=== PATIENT | female | born 1930 | race Caucasian/White ===

== ENCOUNTER 2016-10-14 10:26 | Emergency (ER) | payer MEDICARE, OTHER ==
[~2016-10-14] VITALS: Ht 152.4 cm; Wt 61.4 kg
[~2016-10-14 10:26] MED LIST: ASPI81TA3 PO; CALC600T12 PO; CHOL100045 PO; FUR20 PO; HYDR-3938 PO; ISOS30TA4 PO; Krill Oil PO; LAN125 PO; METO-272 PO; Magnesium PO; PRA20 PO; Potassium Gluconate PO; VITA400C64 PO
[2016-10-14 10:29] VITALS: BP 195/122; PULSE 79; RESP 18; O2SAT 97
--- NOTE | 2016-10-14 10:45 | ED.REPORT ---
HPI-Back Pain 40 and Over Date of Service Oct 14, 2016 ED Provider: Francois Sanders MD History of Present Illness: sent from urgent care for eveal Pt is a 86 year old female with a history of CHF, A-fib, HTN, who presents to the ED complaining of right lower back pain onset 1 week. She denies chest pain , SOB, numbness, urinary symptoms, bowel symptoms, and paresthesia. The pt rates her pain as an 8/10. Pt reports that she helped her move lawn chairs 1 week ago, which she believes may have caused her pain. The pt presented to Urgent Care with her symptoms and she was referred to the ED for further evaluation with concerns regarding the aorta. Nursing Notes Stated Complaint: BACK PAIN/SENT FROM URGENT CARE Chief Complaint: Back Pain or Injury Nursing Notes Reviewed: Yes ([employer] not reconciled) Allergies: Coded Allergies: Influenza Virus Vaccines (Verified Allergy, Unknown, 05/20/15) alendronate sodium (Verified Allergy, Unknown, 05/20/15) amlodipine besylate (Verified Allergy, Unknown, 05/20/15) benazepril HCl (Verified Allergy, Unknown, 05/20/15) Scheduled ([Magnesium ]) 400 MG PO DAILY ([Krill Oil ]) 750 PO DAILY ([Potassium Gluconate]) 10 MEQ PO BID Aspirin Chew (Aspirin Chew) 81 Mg Chew 81 MG PO DAILY Calcium Carbonate (Calcium) 600 Mg Tablet 600 MG PO DAILY Cholecalciferol (Vitamin D3) (Vitamin D) 1,000 Unit Capsule 1,000 UNIT PO DAILY Digoxin (Lanoxin) 0.125 Mg Tablet 0.125 MG PO DAILY@12 Hydralazine (Hydralazine) 10 Mg Tablet 10 MG PO QID Isosorbide MN ER (Isosorbide MN ER) 30 Mg Tab.er.24h 30 MG PO BID Metoprolol Succinate ER (Metoprolol Succinate ER) 50 Mg Tab.er.24h 50 MG PO BID Pravastatin (Pravachol) 20 Mg Tablet 10 MG PO HS Vitamin E Mixed (Vitamin E) 400 Unit Capsule 400 UNIT PO DAILY Scheduled PRN Furosemide (Furosemide) 20 Mg Tab 20 MG PO DAILY PRN PRN For Shortness of Breath General Time Seen by MD: 10:42 Chief Complaint Back pain Hx Obtained From: Patient Arrived By: Walk-in Sudden in Onset?: No Onset Occurred: 1 week ago Symptom Duration: Since onset Location: : Generalized Quality: Painful Radiation: : Does not radiate Severity: Current: Pain level 8 out of 10 Severity: Maximum: Moderate Recent Healthcare: Recent doctor visit Similar Sx Previous: No Past Medical History Past Medical History Notes: Oncologist: Dr. Hernandez Previous oncology note 05/06/15: ASSESSMENT AND PLAN: 1. Microcytic anemia associated with iron deficiency: No evidence of active anemia at this time. Red cells were normocytic. Recheck annually. Check CBC, differential, platelets, CMP, and iron studies in one year. 2. Meningioma: Slightly increased in size since prior evaluation. Given her advanced age and relative asymptomatic state, she does not wish to pursue this further unless she were to become clinically symptomatic. 3. Left thyroid mass: The patient is concerned about increasing mass in her thyroid. Obtain ultrasound and compare to exam from 2-3 years ago. Ab Hernandez MD 05/06/15 1628 <Electronically signed by Ab Hernandez MD> 05/07/15 1040 Past Medical History microcytic anemia meningioma left thyroid mass arthritis skin cancer Anxiety Hypomagnesemia Reports: GERD, Hypertension Reports: Atrial fibrillation Past Surgical History hiatal hernia repair in 2011 brain surgery for meningioma Reports: Appendectomy, Cholecystectomy, Hysterectomy Family History Mother had hypertension and a meningioma Brother had brain cancer and within 3 months of diagnosis Paternal aunt with brain cancer Daughter with tumors like a meningioma but on her arm Father at age 62 of hemorrhaging after he swallowed a chicken bone Smoking History Never Smoker Social History Alcohol Use: Denies alcohol use Drug Use: Denies drug use Other Social History: Good social support, , Local resident Ambulatory Status Independent Review of Systems Denies paresthesia Respiratory: Denies: Shortness of breath Cardiovascular: Denies: Chest pain GI: Denies: Constipation, Diarrhea Female: Denies: Dysuria, Hematuria, Incontinence, Urinary frequency, Urinary urgency, Urination decreased, Urination increased Musculoskeletal: Reports: Back pain Neurologic: Denies: Numbness Complete sys rev & neg: except as marked. Physical Exam Initial Vital Signs Vital Signs (First) Date Time Temp Pulse Resp B/P Pulse Ox O2 Delivery O2 Flow Rate FiO2 10/14/16 10:29 36.3 79 18 195/122 97 Room Air Initial VS: Reviewed, Vital signs abnormal (severe HTN) Head / Eyes: Atraumatic, Normocephalic Neck: Supple, Full range of motion Extremities: Vascular intact, Neuro intact Skin: Warm, Dry, No cyanosis Psychiatric: Mood/affect normal, Behavior normal General/Constitutional: Awake, Alert Respiratory / Chest: Atraumatic, Breath sounds NL, Breath sounds = bilat Cardiovascular: Regular rhythm Heart Sounds / Murmur: Positive: Murmur present... (I/, mild) Rate controlled A-fib. No edema. Abdomen: Atraumatic, Soft, Non-tender, No pulsatile mass Back: Atraumatic, Full range of motion Neurologic: Oriented X3, Speech NL Interpretation & Diagnostics CT ANGIO CHEST ABDOMEN AND PELVIS IMPRESSION: 1. No aortic aneurysm or dissection. 2. Small hiatal hernia. 3. Diverticulosis. No acute diverticulitis. 4. Calcified left thyroid mass. Followup or ultrasound suggested. 5. Simple appearing right renal cyst. 6. Compression fractures, moderate at T12 and mild at L4, probably chronic. There is osteopenia. 7. Multiple small nodules bilaterally. Some nodules are calcified consistent with remote granulomatous infections. Please followup recommendation. Fleischner Society criteria for SOLID lung nodule followup. Nodule size (mm)Low-risk patientHigh-risk [id number] follow-up neededFollow-up at 12 mo; if no change, no further follow-up>[id number] CT at 12 mo; if no change, no further follow-up needed.Initial follow-up CT at 6-12 mo, then 18-24 mo if no change. >6-8Initial follow-up CT at 6-12 mo, then 18-24 mo if no change. Initial follow-up CT at 3-6 mo, then 9-12 mo and 24 mo if no change. > 8Follow-up CT at 3, 9, 24 mo. Or PET and/or biopsy.Same as for low-risk pts. Dictated by: Jennifer Aleman M.D. on 10/14/2016 at 12:37 Lab Results Interpretation Result Diagram: 10/14/16 1106 10/14/16 1106 Test 10/14/16 10:48 10/14/16 11:06 Urine Color Straw (YELLOW) Urine Appearance Hazy (CLEAR,HAZY) Urine pH 6.0 (5.0-8.0) Urine Specific Welches 1.005 (1.003-1.035) Urine Protein Negativemg/dL (NEG,TRACE) Urine Glucose (UA) Negativemg/dL (NEGATIVE) Urine Ketones Negativemg/dL (NEGATIVE) Urine Occult Blood Negative (NEGATIVE) Urine Nitrite Negative (NEGATIVE) Urine Bilirubin Negative (NEGATIVE) Urine Urobilinogen Normalmg/dL (NORMAL) Urine Leukocyte Esterase Negative (NEGATIVE) Urine RBC 0-2/hpf (0-2) Urine WBC 0-5/hpf (0-5) Urine Epithelial Cells Occasional/hpf (NONE-MOD) Urine Crystals None seen (NONE SEEN) Urine Bacteria Few/hpf (NONE-FEW) Urine Hyaline Casts None/lpf (NONE) Urine Granular Casts None seen (NONE SEEN) Urine Waxy Casts None seen (NONE SEEN) Urine Red Blood Cell Casts None seen (NONE SEEN) Urine White Blood Cell Casts None seen (NONE SEEN) Urine Mucus None seen (None Seen) Urine Trichomonas None seen (NONE SEEN) Urine Yeast None (NONE SEEN) Urinalysis Comment None Urine Culture Reflexed Not indicated Hold Urine Received (Received) White Blood Count 3.5th/mm3 (3.8-10.1) Red Blood Count 4.87mil/mm3 (3.90-5.20) Hemoglobin 14.2g/dL (12.0-15.6) Hematocrit 42.4% (35.0-46.0) Mean Corpuscular Volume 87.1fL (81-100) Mean Corpuscular Hemoglobin 29.2pg (27.0-35.0) Mean Corpuscular Hemoglobin Concent 33.5% (32.0-37.0) Red Cell Distribution Width 14.6% (12.3-15.4) Platelet Count 78bil/L (150-400) Neutrophils (%) (Auto) 52.2% (40-74) Lymphocytes (%) (Auto) 33.9% (14-46) Monocytes (%) (Auto) 8.4% (4-12) Eosinophils (%) (Auto) 4.3% (0-5) Basophils (%) (Auto) 0.6% (0-3) Sodium Level 143mEq/L (134-144) Potassium Level 4.3mEq/L (3.5-5.2) Chloride Level 105mEq/L (97-108) Carbon Dioxide Level 24mmol/L (18-29) Blood Urea Nitrogen 17mg/dL (8-27) Creatinine 0.77mg/dL (0.57-1.00) Estimat Glomerular Filtration Rate 101mL/min (>59) Glucose Level 106mg/dL (60-99) Calcium Level 9.3mg/dL (8.5-10.1) Total Bilirubin 0.5mg/dL (0.0-1.2) Aspartate Amino Transf (AST/SGOT) 21U/L (0-50) Alanine Aminotransferase (ALT/SGPT) 13U/L (0-32) Alkaline Phosphatase 69U/L (25-165) Troponin T 0.010ug/L (0.0-0.011) Total Protein 6.9g/dL (6.4-8.4) Albumin 4.1g/dL (3.4-5.0) ECG Interpretation ECG Interpretation: Atrial fibrillation with a rate of 88 Anterior q waves No change compared to 01/2016 Time: 10:52 Interpreted by: ED physician Re-Eval/Medical Decision Med Decision/Clinical Course This is an 86-year-old female with chronic severe high blood pressure is referred from urgent care for concern for AAA or dissection she developed some new back pain following some lifting and yard work she did. However the pain did not start immediately at the time of exertion, but has been worsening. This a mechanical component, but no new neurologic symptoms. Symptoms do radiate into the right flank slightly. She denies grover chest discomfort, shortness breath or diaphoresis. She is severely hypertensive, but claims this is chronic and unchanged-she is on multiple blood pressure medications. The patient is not taking any medicines include Tylenol ibuprofen she did no safe. On exam she actually appears well, no palpable abdominal mass is evident. She does not appear toxic or ill, has a normal neurologic exam. EKG blood work is normal and CT chest abdomen pelvis reveals no evidence for dissection or aortic aneurysm, additionally his spine appears without acute injury, patient received Tylenol and dose ibuprofen given normal renal function and is markedly improved. She is being discharged on same. Routine precautions reviewed, she will follow up with her PCP for continued workup blood pressure management. Routine return precautions reviewed. Patient is discharged in improved condition. Source of Hx: Old records Re-Evaluation/Progress : Time of Eval: 13:05 Re-Evaluation/Progress Note: Pt rechecked. Informed pt of results and plan for discharge. Pt understands and agrees with plan for discharge. F/U instructions and RTER warnings given. All questions addressed. Differential Diagnosis: Positive: Musculoskeletal pain, Negative: Abdominal aortic aneurysm, , Aortic dissection, Appendicitis, Bowel obstruction, Cauda equina syndrome, Ectopic , Epidural abscess, Neoplasm, Osteomyelitis, Pancreatitis, Pyelonephritis, Sciatica, Thoracic aortic dissect Counseled Regarding: Diagnosis, Lab results, Need for follow-up, When/why to return to ED Discharge & Departure Impression: Primary Impression: Back pain Back pain location: back pain in unspecified location Chronicity: acute Back pain laterality: right Qualified Code: M54.9 - Dorsalgia, unspecified Additional Impressions: Flank pain Hypertension Hypertension type: unspecified secondary hypertension Qualified Code: I15.9 - Secondary hypertension, unspecified Disposition: Home Discharge Condition All VS Reviewed: Yes Condition: Stable Additional Instructions: 1. You were sent from Urgent Care for imaging to make sure there was not a dangerous cause of your back/flank pain - and your CT scans were normal. 2. Take tylenol 1000mg three times a day for pain if needed. 3. It is safe for you to take ibuprofen 400mg up to three times a day for the next week or tow as well if needed. 4. Continue your blood pressure medication and continue to work on your blood pressure management with your primary provider. 5. Activities as tolerated (take it easy) 6. Return if new or worsening symptoms. Referrals: Pancho Loera MD (PCP) Scribe Attestation Portions of this note were transcribed by Nadege Hair. I, Dr. Sanders personally performed the history, physical exam and medical decision-making; I reviewed and confirmed the accuracy of the information in the transcribed note. Signed by: Keo Pimentel, 10/14/16. copies to: Pancho Loera MD, Matthew F MD Oct 14, 2016 10:44 Nadege Motley Oct 14, 2016 10:47
[2016-10-14 11:16] LABS: BASOPHILS % (AUTO) 0.6 % (0-3); EOSINOPHILS % (AUTO) 4.3 % (0-5); MONOCYTES % (AUTO) 8.4 % (4-12); Mean Corpuscular Hemoglobin 29.2 pg (27.0-35.0); Mean Corpuscular Volume 87.1 fL (81-100); NEUTROPHILS % (AUTO) 52.2 % (40-74); Platelet Count 78 bil/L (150-400)
[2016-10-14] MEDS ORDERED: fentaNYL-PF 50 mCg/mL 2 mL Inj IVPUSH ONE (11:25)
[2016-10-14 12:05] LABS: TROPONIN T 0.01 ug/L (0.0-0.011)
[2016-10-14 12:30] VITALS: BP 182/94; PULSE 62; PULSE 91; RESP 18; O2SAT 95
--- NOTE | 2016-10-14 12:56 | DRSVH ---
PROCEDURE: CT ANGIO CHEST ABDOMEN AND PELVIS INDICATIONS: back/R flank pain, severe HTN TECHNIQUE: Precontrast 5 mm thick sections acquired from the lung apices to the iliac crests. After the adminis tration of intravenous contrast, 3 mm thick sections again acquired from the lung apices to the iliac crests. 3-dimensional maximum intensity projection (MIP) oblique sagittal and coronal reformats wer e then acquired, and/or 3-dimensional volume rendering reformats. For radiation dose reduction, the following was used: automated exposure control. COMPARISON: [facility], US, US THYROID, 05/15/2015, 7:42. [facility], CT, CT ABD PELVIS W CON, 05/16/2015, 5:29. FINDINGS: Image quality: Excellent. AORTA: The aorta is normal in caliber. No evidence for aortic dissection. There is moderate atherosc lerotic calcification. CHEST: Lungs and pleura: Multiple small lung nodules are present bilaterally; some are calcified. No acute airspace opacities. No pleural effusions or pneumothorax. Central and peripheral airways are patent and normal in caliber. Mediastinum: Heart size is normal. No pericardial effusion. No mediastinal or hilar adenopathy by size criteria. Central pulmonary arteries are normal in size. Esophagus is normal in caliber. There is a small hiatal hernia. Bones and chest wall: No axillary adenopathy by size criteria. Left thyroid lobe is enlarged there i s a large calcified mass. No suspicious bony lesions. No vertebral body compression fractures. ABDOMEN: Vasculature: Celiac trunk and mesenteric arteries are patent. Dense calcification at the renal yonatan ry ostia with modest stenosis. Renal arteries are, however, patent. Solid organs: Liver and spleen are normal in size. Gallbladder is surgically absent. Biliary syste m is non dilated. Pancreas enhances normally. No adrenal nodules. Both kidneys are normal in size and enhancement, without hydronephrosis. There is a 4 cm simple appearing cyst in the right kidney. Peritoneum and bowel: No free fluid or air. Bowel loops are normal in caliber and wall thickness. There are scattered colonic diverticula. No acute diverticulitis. Nodes and vessels: No retroperitoneal or mesenteric adenopathy by size criteria. Inferior vena cava is normal in morphology. Miscellaneous: Fat-containing ventral hernia. PELVIS: Genitourinary: Bladder wall thickness is normal. Miscellaneous: No inguinal hernias or adenopathy. No ventral hernias. Bones: There is a bone island in the right iliac bone. There is moderate vertebral body compression f racture at T12 and mild compression fracture at L4, probably chronic. There is osteopenia. IMPRESSION: 1. No aortic aneurysm or dissection. 2. Small hiatal hernia. 3. Diverticulosis. No acute diverticulitis. 4. Calcified left thyroid mass. Followup or ultrasound suggested. 5. Simple appearing right renal cyst. 6. Compression fractures, moderate at T12 and mild at L4, probably chronic. There is osteopenia. 7. Multiple small nodules bilaterally. Some nodules are calcified consistent with remote granulomatou s infections. Please followup recommendation. Fleischner Society criteria for SOLID lung nodule followup. Nodule size (mm)Low-risk patientHigh-risk [id number] follow-up neededFollow-up at 12 mo; if no cabrera e, no further follow-up>[id number] CT at 12 mo; if no change, no further follow-up needed.Initial f ollow-up CT at 6-12 mo, then 18-24 mo if no change. >6-8Initial follow-up CT at 6-12 mo, then 18-24 mo if no change. Initial follow-up CT at 3-6 mo, then 9-12 mo and 24 mo if no change. >8Follow-up CT at 3, 9, 24 mo. Or PET and/or biopsy.Same as for low-risk pts. Dictated by: Jennifer Aleman M.D. on 10/14/2016 at 12:37 Approved by: Jennifer Aleman M.D. on 10/14/2016 at 12:54
[2016-10-14 13:35] LABS: APPEARANCE,URINE HAZY (CLEAR,HAZY); COLOR,URINE STRAW (YELLOW)
[2016-10-14 13:36] LABS: OCCULT BLOOD,URINE NEGATIVE (NEGATIVE); UROBILINOGEN,URINE NORMAL (NORMAL)
[2016-10-14 14:10] VITALS: BP 158/82; PULSE 70; RESP 16; O2SAT 94
== END 2016-10-14 14:11 | disposition home or self-care (01) ==
LOC: SED 10:26
DX: M54.9 Dorsalgia, unspecified (principal); R10.84 Generalized abdominal pain; I15.9 Secondary hypertension, unspecified; I48.91 Unspecified atrial fibrillation; K21.9 Gastro-esophageal reflux disease without esophagitis; F41.9 Anxiety disorder, unspecified; Z98.890 Other specified postprocedural states; Z79.82 Long term (current) use of aspirin; Z88.7 Allergy status to serum and vaccine; Z88.8 Allergy status to other drugs, medicaments and biological substances
CPT/HCPCS: 36415; 71275; 74174; 80053; 81000; 84484; 85025; 93005; 96374; 99285; J3010; Q9967

== ENCOUNTER 2016-10-17 04:49 | Emergency (ER) | payer MEDICARE, OTHER ==
[~2016-10-17] VITALS: Ht 152.4 cm; Wt 63.6 kg
[2016-10-17 04:51] VITALS: BP 207/105; PULSE 80; RESP 18; O2SAT 97
--- NOTE | 2016-10-17 05:03 | ED.REPORT ---
HPI-Back Pain 40 and Over Date of Service Oct 17, 2016 ED Provider: Dr. Ortega Pt is an 86 year old female with a history of CHF, A-fib, and HTN presenting to the ED complaining of back pain onset 2 weeks ago while lifting lawn chairs. She was seen in the ED yesterday and had a CT showing old compression fractures but no acute process. She denies any bladder or stool incontinence, numbness, fever, nausea vomiting or diarrhea. She has been taking Tylenol and Ibuprofen for pain without relief. Nursing Notes Stated Complaint: BACK PAIN Chief Complaint: Back Pain or Injury Nursing Notes Reviewed: Yes Allergies: Coded Allergies: Influenza Virus Vaccines (Verified Allergy, Unknown, 10/17/16) alendronate sodium (Verified Allergy, Unknown, 10/17/16) amlodipine besylate (Verified Allergy, Unknown, 10/17/16) benazepril HCl (Verified Allergy, Unknown, 10/17/16) Scheduled ([Magnesium ]) 400 MG PO DAILY ([Krill Oil ]) 750 PO DAILY ([Potassium Gluconate]) 10 MEQ PO BID Aspirin Chew (Aspirin Chew) 81 Mg Chew 81 MG PO DAILY Calcium Carbonate (Calcium) 600 Mg Tablet 600 MG PO DAILY Cholecalciferol (Vitamin D3) (Vitamin D) 1,000 Unit Capsule 1,000 UNIT PO DAILY Digoxin (Lanoxin) 0.125 Mg Tablet 0.125 MG PO DAILY@12 Hydralazine (Hydralazine) 10 Mg Tablet 10 MG PO QID Isosorbide MN ER (Isosorbide MN ER) 30 Mg Tab.er.24h 30 MG PO BID Metoprolol Succinate ER (Metoprolol Succinate ER) 50 Mg Tab.er.24h 50 MG PO BID Pravastatin (Pravachol) 20 Mg Tablet 10 MG PO HS Vitamin E Mixed (Vitamin E) 400 Unit Capsule 400 UNIT PO DAILY Scheduled PRN Furosemide (Furosemide) 20 Mg Tab 20 MG PO DAILY PRN PRN For Shortness of Breath General Time Seen by MD: 05:02 Chief Complaint Back pain Hx Obtained From: Patient Arrived By: Walk-in Sudden in Onset?: Yes Onset Occurred: More than a week ago... (2 weeks) Symptom Duration: Since onset Caused by: Lifting Quality: Painful Severity: Current: Severe Severity: Maximum: Severe Recent Healthcare: No recent hospitalization, Recent doctor visit Similar Sx Previous: Yes Past Medical History Past Medical History Notes: Oncologist: Dr. Hernandez Previous oncology note 05/06/15: ASSESSMENT AND PLAN: 1. Microcytic anemia associated with iron deficiency: No evidence of active anemia at this time. Red cells were normocytic. Recheck annually. Check CBC, differential, platelets, CMP, and iron studies in one year. 2. Meningioma: Slightly increased in size since prior evaluation. Given her advanced age and relative asymptomatic state, she does not wish to pursue this further unless she were to become clinically symptomatic. 3. Left thyroid mass: The patient is concerned about increasing mass in her thyroid. Obtain ultrasound and compare to exam from 2-3 years ago. Ab Hernandez MD 05/06/15 1628 <Electronically signed by Ab Hernandez MD> 05/07/15 1040 Past Medical History microcytic anemia meningioma left thyroid mass arthritis skin cancer Anxiety Hypomagnesemia Reports: GERD, Hypertension Reports: Atrial fibrillation Past Surgical History hiatal hernia repair in 2011 brain surgery for meningioma Reports: Appendectomy, Cholecystectomy, Hysterectomy Family History Mother had hypertension and a meningioma Brother had brain cancer and within 3 months of diagnosis Paternal aunt with brain cancer Daughter with tumors like a meningioma but on her arm Father at age 62 of hemorrhaging after he swallowed a chicken bone Smoking History Never Smoker Social History Alcohol Use: Denies alcohol use Drug Use: Denies drug use Other Social History: Good social support, , Local resident Ambulatory Status Independent Review of Systems Constitutional: Denies: Fever GI: Denies: Diarrhea, Nausea, Vomiting Female: Denies: Incontinence Musculoskeletal: Reports: Back pain Neurologic: Denies: Bladder dysfunction, Bowel dysfunction, Numbness Complete sys rev & neg: except as marked. Physical Exam Initial Vital Signs Vital Signs (First) Date Time Temp Pulse Resp B/P Pulse Ox O2 Delivery O2 Flow Rate FiO2 10/17/16 04:51 36.4 80 18 207/105 97 Room Air Initial VS: Reviewed Head / Eyes: Atraumatic, Normocephalic, PERRL ENT: Mucous membranes moist, Conjunctiva normal, No scleral icterus Extremities: Vascular intact, Neuro intact, No swelling, No tenderness Skin: Warm, Dry, No cyanosis Psychiatric: Mood/affect normal, Behavior normal, Normal thought content General/Constitutional: Awake, Alert Appears uncomfortable Respiratory / Chest: Breath sounds NL, Breath sounds = bilat, No respiratory distress, No rales, No rhonchi, No wheezing Cardiovascular: Heart rate NL, Regular rhythm, Heart sounds NL, No murmurs, Peripheral circulation NL Abdomen: Atraumatic, Soft, Non-tender Back: Atraumatic, No CVA tenderness Low back pain. No flank pain. Neurologic: Oriented X3, Speech NL, No motor deficits, No sensory deficits, CN II - XII intact, Reflexes equal bilat, Cerebellar NL, Memory NL Re-Eval/Medical Decision Med Decision/Clinical Course -year-old female presents with back pain unrelieved by Motrin and Tylenol. Onset was about two weeks ago after lifting some furniture. Then basically unrelenting and progressive, but without neurological malfunction. She has received a Vicodin and some Robaxin here tonight with minimal relief. Cannot characterize this yet is intractable and so additional round of therapy plan. Signed out at [address] Arenas, for further evaluation and management as clinical situation dictates. Re-Evaluation/Progress : Time of Eval: 06:00 Patient Status: Condition improved Re-Evaluation/Progress Note: Pt feeling slightly better. Discussed transfer of care to Dr. Arenas. Counseled Regarding: Diagnosis, Lab results, Need for follow-up, When/why to return to ED Discharge & Departure Shift Change Sign-Out Patient Care Transferred: Yes Discussed Complaint(s): Yes Laboratory Evaluation: Ordered, not yet done Impression: Primary Impression: Low back pain Disposition: Home Discharge Condition All VS Reviewed: Yes Condition: Improved Referrals: Pancho Loera MD (PCP) Care Transferred to: Care transferred to Dr. Arenas Care Transferred at: 06:00 Keo Attestation Portions of this note were transcribed by Altagracia Apple. I, Dr. Ortega personally performed the history, physical exam and medical decision-making; I reviewed and confirmed the accuracy of the information in the transcribed note. Signed by: Keo Degroot, 10/17/2016. copies to: Pancho Loera MD, Christopher W MD Oct 17, 2016 05:03 ALTAGRACIA APPLE Oct 17, 2016 05:10
[2016-10-17] MEDS ORDERED: HYDROcodone-APAP 5-325 mg Tablet PO ONE (05:10)
[2016-10-17] MEDS ORDERED: Magnesium Hydroxide 10 mL Oral Concentration PO ONE (05:25)
[2016-10-17 06:06] VITALS: BP 196/94; PULSE 63; RESP 16; O2SAT 96
[2016-10-17] MEDS ORDERED: oxyCODONE-Acetamin 5-325 mg Tablet PO ONE ×2 (07:00→08:35)
[2016-10-17 08:38] LABS: APPEARANCE,URINE HAZY (CLEAR,HAZY); COLOR,URINE YELLOW (YELLOW); OCCULT BLOOD,URINE NEGATIVE (NEGATIVE); UROBILINOGEN,URINE NORMAL (NORMAL)
[2016-10-17] MEDS ORDERED: POLY17PO6 PO (09:51)
[2016-10-17] MEDS ORDERED: METH500T PO (09:51)
[2016-10-17] MEDS ORDERED: OXYC1TAB24 PO (09:51)
[2016-10-17 09:52] VITALS: BP 145/80; PULSE 85; RESP 14; O2SAT 95
[2016-10-17 10:17] VITALS: BP 145/80; PULSE 85; RESP 14; O2SAT 95
--- NOTE | 2016-10-17 11:36 | DRSVH ---
PROCEDURE: X-RAY SACROILIAC JOINTS, THREE OR MORE VIEWS ([id number]) INDICATIONS: r si joint pain TECHNIQUE: 3 views of the sacroiliac joints were acquired. COMPARISON: None. FINDINGS: Bones: No bony erosions or ankylosis. There is moderate sacroiliac joint degeneration. A 9 mm round density in the right sacral ala is probably a bone island. suspicious bony lesions. No fractures. Soft tissues: Overlying bowel gas pattern is normal. A calcific density below the pubic symphysis is noted. 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 No bony erosion or an kylosis. Dictated by: Jennifer Aleman M.D. on 10/17/2016 at 11:33 Approved by: Jennifer Aleman M.D. on 10/17/2016 at 11:34
== END 2016-10-17 10:18 | disposition home or self-care (01) ==
LOC: SED 04:49
DX: M54.5 Low back pain (principal); I11.0 Hypertensive heart disease with heart failure; I50.9 Heart failure, unspecified; K21.9 Gastro-esophageal reflux disease without esophagitis; Z85.828 Personal history of other malignant neoplasm of skin; Z90.710 Acquired absence of both cervix and uterus; Z79.82 Long term (current) use of aspirin; Z88.8 Allergy status to other drugs, medicaments and biological substances

== ENCOUNTER 2016-10-28 14:50 | Emergency (ER) | payer MEDICARE, OTHER ==
[~2016-10-28] VITALS: Ht 152.4 cm; Wt 63.6 kg
[~2016-10-28 14:50] MED LIST changes: +METH500T PO; -METO-272 PO; +METO-369 PO; +OXYC1TAB24 PO; +POLY17PO6 PO
[2016-10-28 15:03] VITALS: BP 155/85; PULSE 67; RESP 19; O2SAT 97
--- NOTE | 2016-10-28 15:25 | ED.REPORT ---
HPI-Back Pain 40 and Over Date of Service Oct 28, 2016 ED Provider: Kodak Carter MD Pt is an 86 year old female with a hx of meningioma, afib, GERD, CHF and HTN presenting to the ED from complaining of right lower back pain for the last 2 weeks. The pain is exacerbated by movement and does not radiate. Denies any LE weakness, loss of sensation in her legs, fever, chills, vomiting, SOB or wheezing. She has not had any fecal or urinary incontinence and she has not had any difficulty voiding urine. She was working on her deck 3 weeks ago and helped her orange picker a heavy table at which time she started having back pain. Pt was seen by her PCP on 10/19 and was given a "shot but it didn't help." Pt takes 2 oxycodone pills every 6 hours without relief. She has also been using hot packs and ice packs. She is not on blood thinners. She has not been taking any ibuprofen or Tylenol. Nursing Notes Stated Complaint: BACK PAIN/SENT FROM URGENT CARE Chief Complaint: Back Pain or Injury Nursing Notes Reviewed: Yes Allergies: Coded Allergies: Influenza Virus Vaccines (Verified Allergy, Unknown, 10/17/16) alendronate sodium (Verified Allergy, Unknown, 10/17/16) amlodipine besylate (Verified Allergy, Unknown, 10/17/16) benazepril HCl (Verified Allergy, Unknown, 10/17/16) Scheduled ([Magnesium ]) 400 MG PO DAILY ([Krill Oil ]) 750 PO DAILY ([Potassium Gluconate]) 10 MEQ PO BID Aspirin Chew (Aspirin Chew) 81 Mg Chew 81 MG PO DAILY Calcium Carbonate (Calcium) 600 Mg Tablet 600 MG PO DAILY Cholecalciferol (Vitamin D3) (Vitamin D) 1,000 Unit Capsule 1,000 UNIT PO DAILY Digoxin (Lanoxin) 0.125 Mg Tablet 0.125 MG PO DAILY@12 Hydralazine (Hydralazine) 10 Mg Tablet 10 MG PO QID Isosorbide MN ER (Isosorbide MN ER) 30 Mg Tab.er.24h 30 MG PO BID Lidocaine (Lidoderm) 700 Mg Adh..patch 1 PATCH TP UD Methocarbamol (Robaxin) 500 Mg Tablet 1-2 TAB PO TID Metoprolol Succinate ER (Metoprolol Succinate ER) 50 Mg Tab.er.24h 50 MG PO BID Polyethylene Glycol 3350 (Miralax) 17 Gm Powd.pack 17 GM PO DAILY use daily while taking percocet to prevent constipation Pravastatin (Pravachol) 20 Mg Tablet 10 MG PO HS Vitamin E Mixed (Vitamin E) 400 Unit Capsule 400 UNIT PO DAILY Scheduled PRN Furosemide (Furosemide) 20 Mg Tab 20 MG PO DAILY PRN PRN For Shortness of Breath oxyCODONE-Acetaminophen 5-325 mg (oxyCODONE-Acetaminophen 5-325 mg) 1 Each Tablet 1-2 TAB PO Q6H PRN PRN For Pain General Time Seen by MD: 15:19 Chief Complaint Back pain Hx Obtained From: Patient Arrived By: Walk-in Sudden in Onset?: Yes Onset Occurred: More than a week ago... (2 weeks) Symptom Duration: Since onset Caused by: Lifting Quality: Painful Severity: Current: Moderate Severity: Maximum: Severe Recent Healthcare: No recent hospitalization, Recent doctor visit Similar Sx Previous: No Past Medical History Past Medical History Notes: Oncologist: Dr. Hernandez Previous oncology note 05/06/15: ASSESSMENT AND PLAN: 1. Microcytic anemia associated with iron deficiency: No evidence of active anemia at this time. Red cells were normocytic. Recheck annually. Check CBC, differential, platelets, CMP, and iron studies in one year. 2. Meningioma: Slightly increased in size since prior evaluation. Given her advanced age and relative asymptomatic state, she does not wish to pursue this further unless she were to become clinically symptomatic. 3. Left thyroid mass: The patient is concerned about increasing mass in her thyroid. Obtain ultrasound and compare to exam from 2-3 years ago. Ab Hernandez MD 05/06/15 1628 <Electronically signed by Ab Hernandez MD> 05/07/15 1040 Past Medical History CHF microcytic anemia meningioma left thyroid mass arthritis skin cancer Anxiety Hypomagnesemia Reports: GERD, Hypertension Reports: Atrial fibrillation Past Surgical History hiatal hernia repair in 2012 brain surgery for meningioma Reports: Appendectomy, Cholecystectomy, Hysterectomy Family History Mother had hypertension and a meningioma Brother had brain cancer and within 3 months of diagnosis Paternal aunt with brain cancer Daughter with tumors like a meningioma but on her arm Father at age 62 of hemorrhaging after he swallowed a chicken bone Smoking History Never Smoker Social History Alcohol Use: Denies alcohol use Drug Use: Denies drug use Other Social History: Good social support, , Local resident Ambulatory Status Independent Review of Systems Constitutional: Denies: Chills, Fever Respiratory: Denies: Shortness of breath, Wheezing GI: Reports: Constipation, Nausea, Denies: Vomiting Female: Reports: Incontinence Musculoskeletal: Reports: Back pain Neurologic: Denies: Focal weakness, Numbness Complete sys rev & neg: except as marked. Physical Exam Initial Vital Signs Vital Signs (First) Date Time Temp Pulse Resp B/P Pulse Ox O2 Delivery O2 Flow Rate FiO2 10/28/16 15:03 36.8 67 19 155/85 97 Room Air Initial VS: Reviewed Head / Eyes: Atraumatic, Normocephalic, PERRL ENT: Mucous membranes moist, Conjunctiva normal, No scleral icterus Extremities: Vascular intact, Neuro intact, No swelling, No tenderness Skin: Warm, Dry, No cyanosis Psychiatric: Mood/affect normal, Behavior normal, Normal thought content General/Constitutional: Awake, Alert, No acute distress Respiratory / Chest: Breath sounds NL, Breath sounds = bilat, No respiratory distress, No rales, No rhonchi, No wheezing Cardiovascular: Heart rate NL, Regular rhythm, Heart sounds NL, No murmurs, Peripheral circulation NL Abdomen: Atraumatic, Soft, Non-tender Back: Atraumatic No midline cervical, thoracic or lumbar tenderness. Mild right lumbar paraspinal tenderness with palpation. Pain is also reproducible with bending, twisting or movement Neurologic: Oriented X3, Speech NL, No motor deficits, No sensory deficits, CN II - XII intact, Reflexes equal bilat, Cerebellar NL Good strenth bilateral lower extremities Interpretation & Diagnostics Lab Results Interpretation Test 10/28/16 19:42 Hold Purple Top Tube Received (Received) Hold Blue Top Tube Received (Received) Hold [place] Top Tube Received (Received) Re-Eval/Medical Decision Med Decision/Clinical Course Pt is an 86 year old female with a hx of meningioma, afib, GERD, CHF and HTN presenting to the ED from complaining of right lower back pain for the last 2 weeks. The pain is exacerbated by movement and does not radiate. Denies any LE weakness, loss of sensation in her legs, fever, chills, vomiting, SOB or wheezing. She has not had any fecal or urinary incontinence and she has not had any difficulty voiding urine. She was working on her [employer] 3 weeks ago and helped her orange picker a heavy table at which time she started having back pain. Pt was seen by her PCP on 10/19 and was given a "shot but it didn't help." Pt takes 2 oxycodone pills every 6 hours without relief. She has also been using hot packs and ice packs. She is not on blood thinners. She has not been taking any ibuprofen or Tylenol. Here in the emergency department the patient is afebrile with stable vital signs and examination as above. She demonstrates good strength, reflexes and sensation in the bilateral lower extremities without any saddle anesthesia. Examination reveals some reproducible paraspinal tenderness without any focal bony tenderness or step-offs. Reviewed pt's most recent labs from about 2 weeks ago which showed good kidney function, normal BUN and creatinine. Spinal x ray dated 10/17/2016 shows: 1. No aortic aneurysm or dissection. 2. Small hiatal hernia. 3. Diverticulosis. No acute diverticulitis. 4. Calcified left thyroid mass. Followup or ultrasound suggested. 5. Simple appearing right renal cyst. 6. Compression fractures, moderate at T12 and mild at L4, probably chronic. There is osteopenia. 7. Multiple small nodules bilaterally. Some nodules are calcified consistent with remote granulomatous infections. Please followup recommendation. At this time, I see no evidence of acute neurologic emergency. Her neurologic examination is not consistent with any evidence of central cord impingement. It is not suggestive of paraspinal or epidural abscess. There are no findings suggestive of cauda equina syndrome. In reviewing her previous imaging it appears that she does have known thoracic and lumbar compression fractures in association with osteopenia. These are chronic in appearance though there is certain possibility that there is some component of new compression fracture causing her ongoing pain. That being said, her presentation seems most consistent with paraspinal pain/strain. She states that she would like to take ibuprofen but was told in the past that she should not do this. She denies any history of bleeding ulcers, gastritis and she has good kidney function. I have advised her to take 400 mg of ibuprofen with food and water every 8 hours for up to one week. She has additionally been prescribed lidocaine patches. She is advised to avoid bed rest, do gentle stretching and apply ice packs and hot packs. She will try to reduce the oxycodone that she is taking as this is causing constipation and not helping much with her pain. She will follow up closely with her primary care physician. Prior to discharge follow-up and return precautions were reviewed in detail with the patient who verbalized understanding and agreement with the plan. The patient was discharged in stable condition. Re-Evaluation/Progress : Time of Eval: 17:33 Patient Status: Condition improved Re-Evaluation/Progress Note: Discussed past CT and lab results. Advised the pt to take Ibuprofen. Counseled Regarding: Diagnosis, Lab results, Need for follow-up, When/why to return to ED Discharge & Departure Impression: Primary Impression: Low back pain Chronicity: acute Back pain laterality: unspecified Sciatica presence: unspecified whether sciatica present Qualified Code: M54.5 - Low back pain Additional Impressions: Lumbar compression fracture Encounter type: initial encounter Fracture type: closed Qualified Code: S32.000A - Wedge compression fracture of unspecified lumbar vertebra, initial encounter for closed fracture Low back sprain Encounter type: initial encounter Qualified Code: S33.9XXA - Sprain of unspecified parts of lumbar spine and pelvis, initial encounter Osteopenia Osteopenia location: unspecified Qualified Code: M85.80 - Other specified disorders of bone density and structure, unspecified site Disposition: Home Discharge Condition All VS Reviewed: Yes Condition: Improved Patient Instructions: Acute Low Back Pain (ED) Additional Instructions: Thank you for seeking care at the emergency room. It is difficult for us to make definitive diagnoses in the ED but we believe that you are experiencing pain from your compression fractures. Our primary goal today in the ED was to evaluate you for any life-threatening conditions. Your evaluation was reassuring. Your kidney function looked fine so you can take 2 tablets of Ibuprofen every 8 hours starting tomorrow. Lidocaine patches can also be helpful, but can be expensive. If your insurance will cover them I would recommend using them. Alternate between using ice packs and hot packs. I would definitely recommend getting out of bed, at least sitting on the side of your bed and stretching. If you don't, your back pain will likely not improve. Be careful if you take Tylenol and oxycodone at the same time, do not exceed 2000 mg per day. You should follow-up with your primary doctor in the next week. You should return to the ED immediately if you develop fevers, vomiting, cough, shortness of breath, chest pain, lightheadedness, weakness or any other concerning signs or symptoms. Thank you for letting us partake in your care today. Referrals: Pancho Loera MD (PCP) Scribe Attestation Portions of this note were transcribed by Altagracia Apple. I, Dr. Carter personally performed the history, physical exam and medical decision-making; I reviewed and confirmed the accuracy of the information in the transcribed note. Signed by: Keo Degroot, 10/28/2016. copies to: Pancho Loera MD, Beck O MD Oct 28, 2016 15:25 ALTAGRACIA APPLE Oct 28, 2016 17:28
[2016-10-28] MEDS ORDERED: LIDO700A10 TP (17:49)
[2016-10-28 17:54] VITALS: BP 174/104; PULSE 85; RESP 18; O2SAT 92
[2016-10-28] MEDS ORDERED: Ketorolac 15 mg/mL Inj IM ONE (17:55)
== END 2016-10-28 18:23 | disposition home or self-care (01) ==
LOC: SED 14:50
DX: S32.048A Other fracture of fourth lumbar vertebra, initial encounter for closed fracture (principal); S33.5XXA Sprain of ligaments of lumbar spine, initial encounter; M54.5 Low back pain; X50.0XXA Overexertion from strenuous movement or load, initial encounter; Y93.89 Activity, other specified; Y92.89 Other specified places as the place of occurrence of the external cause; Y99.8 Other external cause status; M85.80 Other specified disorders of bone density and structure, unspecified site; I11.0 Hypertensive heart disease with heart failure; I50.9 Heart failure, unspecified; I48.91 Unspecified atrial fibrillation; K21.9 Gastro-esophageal reflux disease without esophagitis; F41.9 Anxiety disorder, unspecified; Z98.890 Other specified postprocedural states; Z90.49 Acquired absence of other specified parts of digestive tract; Z79.82 Long term (current) use of aspirin; Z88.7 Allergy status to serum and vaccine; Z88.8 Allergy status to other drugs, medicaments and biological substances
CPT/HCPCS: 96372; 99284; J1885

== ENCOUNTER 2016-10-30 01:15 | Observation (INO) | payer MEDICARE, OTHER ==
[~2016-10-30] VITALS: Ht 152.4 cm; Wt 59.9 kg
[~2016-10-30 01:15] MED LIST changes: +LIDO700A10 TP
[2016-10-30 01:26] VITALS: BP 147/98; PULSE 100; RESP 16; O2SAT 95
--- NOTE | 2016-10-30 01:32 | ED.REPORT ---
HPI-Back Pain 40 and Over Date of Service Oct 30, 2016 ED Provider: Harvinder Ortega MD The patient is a 86-year-old female with history of arthritis, thyroid disease, congestive heart failure, meningioma and hypertension, who presents to the ED complaining of lower back pain onset 2 weeks ago. She was diagnosed with lower back pain and lumbar compression fracture on 10/28/16. Since that time, her pain has worsened to the point that she "can't take it anymore" and "wants to end her life," and is now radiating into her abdomen. She also admits to urinary incontinence but denies vomiting or fever. The patient has been taking oxycodone to treat her pain in addition to probiotics and a Lidocaine patch, though she stopped using the patching because it "worsened her pain." Nursing Notes Stated Complaint: LOW BACK PAIN Chief Complaint: Back Pain or Injury Nursing Notes Reviewed: Yes Allergies: Coded Allergies: Influenza Virus Vaccines (Verified Allergy, Unknown, 10/30/16) alendronate sodium (Verified Allergy, Unknown, 10/30/16) amlodipine besylate (Verified Allergy, Unknown, 10/30/16) benazepril HCl (Verified Allergy, Unknown, 10/30/16) Scheduled ([Magnesium ]) 400 MG PO DAILY ([Krill Oil ]) 750 PO DAILY ([Potassium Gluconate]) 10 MEQ PO BID Aspirin Chew (Aspirin Chew) 81 Mg Chew 81 MG PO DAILY Calcium Carbonate (Calcium) 600 Mg Tablet 600 MG PO DAILY Cholecalciferol (Vitamin D3) (Vitamin D) 1,000 Unit Capsule 1,000 UNIT PO DAILY Digoxin (Lanoxin) 0.125 Mg Tablet 0.125 MG PO DAILY@12 Hydralazine (Hydralazine) 10 Mg Tablet 10 MG PO QID Isosorbide MN ER (Isosorbide MN ER) 30 Mg Tab.er.24h 30 MG PO BID Lidocaine (Lidoderm) 700 Mg Adh..patch 1 PATCH TP UD Methocarbamol (Robaxin) 500 Mg Tablet 1-2 TAB PO TID Metoprolol Succinate ER (Metoprolol Succinate ER) 50 Mg Tab.er.24h 50 MG PO BID Polyethylene Glycol 3350 (Miralax) 17 Gm Powd.pack 17 GM PO DAILY use daily while taking percocet to prevent constipation Pravastatin (Pravachol) 20 Mg Tablet 10 MG PO HS Vitamin E Mixed (Vitamin E) 400 Unit Capsule 400 UNIT PO DAILY Scheduled PRN Furosemide (Furosemide) 20 Mg Tab 20 MG PO DAILY PRN PRN For Shortness of Breath oxyCODONE-Acetaminophen 5-325 mg (oxyCODONE-Acetaminophen 5-325 mg) 1 Each Tablet 1-2 TAB PO Q6H PRN PRN For Pain General Time Seen by MD: 01:31 Chief Complaint Back pain Hx Obtained From: Patient Arrived By: Wheelchair Sudden in Onset?: No Onset Occurred: More than a week ago... Symptom Duration: Since onset Recent Healthcare: No recent hospitalization, Recent doctor visit Similar Sx Previous: Yes Past Medical History Past Medical History Notes: Oncologist: Dr. Hernandez Previous oncology note 05/06/15: ASSESSMENT AND PLAN: 1. Microcytic anemia associated with iron deficiency: No evidence of active anemia at this time. Red cells were normocytic. Recheck annually. Check CBC, differential, platelets, CMP, and iron studies in one year. 2. Meningioma: Slightly increased in size since prior evaluation. Given her advanced age and relative asymptomatic state, she does not wish to pursue this further unless she were to become clinically symptomatic. 3. Left thyroid mass: The patient is concerned about increasing mass in her thyroid. Obtain ultrasound and compare to exam from 2-3 years ago. Ab Hernandez MD 05/06/15 1628 <Electronically signed by Ab Hernandez MD> 05/07/15 1040 Past Medical History CHF microcytic anemia meningioma left thyroid mass arthritis skin cancer Anxiety Hypomagnesemia Reports: Congestive heart failure, GERD, Hypertension Reports: Atrial fibrillation, Thyroid disease Past Surgical History hiatal hernia repair in 2011 brain surgery for meningioma Reports: Appendectomy, Cholecystectomy, Hysterectomy Family History Mother had hypertension and a meningioma Brother had brain cancer and within 3 months of diagnosis Paternal aunt with brain cancer Daughter with tumors like a meningioma but on her arm Father at age 62 of hemorrhaging after he swallowed a chicken bone Smoking History Never Smoker Social History Alcohol Use: Denies alcohol use Drug Use: Denies drug use Other Social History: Good social support, , Local resident Ambulatory Status Independent Review of Systems Constitutional: Denies: Fever Respiratory: Denies: Non-productive cough, Shortness of breath Cardiovascular: Denies: Chest pain GI: Reports: Abdominal pain, Denies: Vomiting Female: Reports: Incontinence (urinary) Musculoskeletal: Reports: Back pain, Denies: Neck pain Complete sys rev & neg: except as marked. Physical Exam Initial Vital Signs Vital Signs (First) Date Time Temp Pulse Resp B/P Pulse Ox O2 Delivery O2 Flow Rate FiO2 10/30/16 01:26 36.3 100 16 147/98 95 Room Air Initial VS: Reviewed General/Constitutional: Awake, Alert Distress / Hydration: Positive: Distress moderate Respiratory / Chest: Atraumatic, Breath sounds NL, Breath sounds = bilat, No respiratory distress Cardiovascular: Heart rate NL, Regular rhythm, Heart sounds NL Abdomen: Atraumatic, Soft, Non-tender Back: lumbar tenderness rigid and uncomfortable Neurologic: Oriented X3, Speech NL, Reflexes equal bilat Neck: Atraumatic, Supple, Full range of motion Lower Extremity / Pelvis / MS: Atraumatic, Full range of motion, Neurologic intact, Vascular intact Skin: Atraumatic, Color NL, No rash, Warm, Dry Head / Eyes: Atraumatic, Normocephalic, PERRL, EOMI ENT: Atraumatic, Airway patent, Mucous membranes moist Upper Extremity / MS: Atraumatic, Full range of motion Psychiatric: Affect NL, Mood NL Interpretation & Diagnostics Interpretation & Diagnostics: CT Lumbar Spine: Conclusion: Old mild wedge deformity of T11. Mild wedge deformity of T12 which I suspect is either subacute or acute. Mild osteoporotic compression deformity superior endplate of L4. Suspected disc bulge/protrusion L4-5. Re-Eval/Medical Decision Med Decision/Clinical Course 78-year-old female with progressive back pain recent compression fractures, and now protrusion L4-L5 documented on CT. She is newly incontinent of urine and needs MRI this morning. Admitted observation status for pain control and MRI this morning. Source of Hx: Old records Re-Evaluation/Progress : Time of Eval: 02:30 Patient Status: Condition improved Re-Evaluation/Progress Note: Patient rechecked, who is more comfortable. The diagnosis and plan for discharge are discussed. The pt understands and agrees with the plan. All questions are addressed at this time. Consultation : Referral / Consult Name: Mynor Christianson MD Consulted With: Hospitalist Call Returned at: 02:37 Academic Affairs Specialist: Agrees with eval, Agrees with plan, Accepts admit Note: Dr. Christianson, a hospitalist understands and agrees with the plan of admitting the patient. Counseled Regarding: Diagnosis, Lab results, Need for admission Discharge & Departure Impression: Primary Impression: Low back pain Chronicity: acute Back pain laterality: unspecified Sciatica presence: unspecified whether sciatica present Qualified Code: M54.5 - Low back pain Additional Impression: Incontinence Incontinence type: urinary Urinary Incontinence type: unspecified incontinence Qualified Code: R32 - Unspecified urinary incontinence Disposition: ADMITTED TO HOSPITAL Discharge Condition All VS Reviewed: Yes Condition: Stable Referrals: Pancho Loera MD (PCP) Scribe Attestation Portions of this note were transcribed by Saira Cox and Srinivasan Harris. I, Dr. Ortega personally performed the history, physical exam and medical decision-making; I reviewed and confirmed the accuracy of the information in the transcribed note. copies to: Pancho Loera MD, Christopher W MD Oct 30, 2016 01:31 Saira Cox Oct 30, 2016 01:42 SRINIVASAN HARRIS Oct 30, 2016 03:32
[2016-10-30] MEDS ORDERED: Dexamethasone 20 mg/2 mL Oral Solution PO ONE (01:45)
[2016-10-30 03:26] VITALS: BP 174/97; PULSE 85; RESP 18; O2SAT 95
--- NOTE | 2016-10-30 03:27 | PCM.HPMED ---
Subjective Date of Service Oct 30, 2016 Primary Provider: Admitting Physician: Primary Care Physician: Pancho Loera MD Attending Physician: Chief Complaint: Back pain History of Present Illness: 86-year-old female with arthritis, thyroid disease, hypertension, heart failure , A. fib, and meningioma who presents to the emergency due to 2 weeks of severe debilitating back pain without radiculopathy and urinary incontinence. Patient states that this pain occurred 1-2 days after spending the day staining her deck and moving tables with her . She has been seen in the emergency department multiple times oxycodone5-325 for pain control. Patient taking 2 tablets 2-3 times a day as almost exhausted her supply. She was unable to hold Dr. Loera, her PCP, and started having more debilitating pain yesterday evening. Patient has attempted to use warm and cold compresses without much effect, as well as a patch for pain control as she says does not work. She denies using any NSAIDs or even Tylenol for pain control. Patient's incontinence started around the same time as the back pain and the patient denies sensation loss in saddle distribution. She denies headache, chest pain, shortness of breath, fever, chills or other review of systems. In the emergency department the patient was given ketorolac, hydromorphone, and Benadryl. CT of the back done showed multiple levels of compression fractures in the lumbar region. Patient is being admitted for pain control and MRI for the morning. No labs were obtained in the ED Review of Systems: Complete review of systems performed; pertinent positives and negatives per history of present illness, all other systems reviewed and are negative Allergies Coded Allergies: Influenza Virus Vaccines (Verified Allergy, Unknown, 10/30/16) alendronate sodium (Verified Allergy, Unknown, 10/30/16) amlodipine besylate (Verified Allergy, Unknown, 10/30/16) benazepril HCl (Verified Allergy, Unknown, 10/30/16) Home Medications Aspirin Chew (Aspirin Chew) 81 Mg Chew 81 MG PO DAILY Calcium Carbonate (Calcium) 600 Mg Tablet 600 MG PO DAILY Cholecalciferol (Vitamin D3) (Vitamin D) 1,000 Unit Capsule 1,000 UNIT PO DAILY Digoxin (Lanoxin) 0.125 Mg Tablet 0.125 MG PO DAILY@12 Hydralazine (Hydralazine) 10 Mg Tablet 10 MG PO QID Isosorbide MN ER (Isosorbide MN ER) 30 Mg Tab.er.24h 30 MG PO BID Lidocaine (Lidoderm) 700 Mg Adh..patch 1 PATCH TP UD Methocarbamol (Robaxin) 500 Mg Tablet 1-2 TAB PO TID Metoprolol Succinate ER (Metoprolol Succinate ER) 50 Mg Tab.er.24h 50 MG PO BID Polyethylene Glycol 3350 (Miralax) 17 Gm Powd.pack 17 GM PO DAILY use daily while taking percocet to prevent constipation Pravastatin (Pravachol) 20 Mg Tablet 10 MG PO HS Vitamin E Mixed (Vitamin E) 400 Unit Capsule 400 UNIT PO DAILY Furosemide (Furosemide) 20 Mg Tab 20 MG PO DAILY PRN PRN For Shortness of Breath oxyCODONE-Acetaminophen 5-325 mg (oxyCODONE-Acetaminophen 5-325 mg) 1 Each Tablet 1-2 TAB PO Q6H PRN PRN For Pain PMH CHF microcytic anemia meningioma left thyroid mass arthritis skin cancer Anxiety Hypomagnesemia Reports: Congestive heart failure, GERD, Hypertension Reports: Atrial fibrillation Surgical History hiatal hernia repair in 2011 brain surgery for meningioma Reports: Appendectomy, Cholecystectomy, Hysterectomy Family History Mother had hypertension and a meningioma Brother had brain cancer and within 3 months of diagnosis Paternal aunt with brain cancer Daughter with tumors like a meningioma but on her arm Father at age 62 of hemorrhaging after he swallowed a chicken bone Social History Hx Alcohol Use: No Hx Substance Use: No Hx Tobacco Use: No Smoking Status: Never Smoker Exam Vital Signs Vital Sign - Last Date Time Temp Pulse Resp B/P Pulse Ox O2 Delivery O2 Flow Rate FiO2 10/30/16 01:26 36.3 100 16 147/98 95 Room Air Exam General: Age-appropriate female in moderate distress HEENT: PERRLA, EOMI, nonicteric, membranes moist Lymph: No lymphadenopathy Cardio: Regular rate and rhythm no murmurs rubs or gallops Respiratory: CTA bilaterally, no wheezes, no crackles Abdomen: Soft, positive bowel sounds, nontender, nondistended Extremities: No edema; sensation and pulses intact Psych: Appropriate mood and affect Neuro: CN II through XII grossly intact, sensation intact throughout Skin: No rash Musculoskeletal: Patient unable to turn over from her back; palpation reveals spasm in the left lumbar region greater than right and very tender to palpation Lab and Diagnostics X-Rays, CTs and MRIs CT Lumbar Spine: (Wet read) Conclusion: Old mild wedge deformity of T11. Mild wedge deformity of T12 which I suspect is either subacute or acute. Mild osteoporotic compression deformity superior endplate of L4. Suspected disc bulge/protrusion L4-5. PROCEDURE: MRI LUMBAR SPINE WITH AND WITHOUT CONTRAST ([id number]) INDICATIONS: severe intractable back pain TECHNIQUE: Noncontrast sagittal T1 spin echo and T2 fast spin echo, sagittal STIR, axial T1 and T2 fast spin echo through the lumbar spine. In cases with scoliosis, additional coronal T2 fast spin echo may be performed. After the administration of contrast, sagittal and axial T1 spin echo with fat saturation through the lumbar spine. COMPARISON: [facility], CT, CT BRAIN W CON, 05/03/2015, 12:22. [facility], CT, CT LUMBAR SPINE WO CON, 10/30/2016, 2:08. FINDINGS: Image quality: Excellent. Alignment and curvature: 5 lumbar type vertebral bodies are present by CT. There is loss of normal lumbar lordosis. There is mild leftward curvature of the spine centered at the thoracolumbar junction. Mild focal kyphosis at T11-L1 is present. There is normal bony alignment. Marrow: Marrow is of normal overall signal. There is moderate wedging of the L1 vertebral body, which demonstrates severe ill-defined T2 signal elevation throughout, as well as linear low T2 signal intensity traversing its inferior aspect. There is moderate chronic wedging of T12. There is mild reactive signal within the endplates adjacent to the T12-L1, L3-L4, L4-L5, and L5-S1 intervertebral discs. There is avid post contrast-enhancement throughout the fractured L1 vertebral body, with the exception of a 20 mm diameter focus of enhancement involving the anteroinferior aspect of the L1 vertebral body. Spinal cord: Conus medullaris terminates at the mid L2 level. Visualized spinal cord demonstrates normal signal, without suspicious enhancement. Paraspinous soft tissues: No paravertebral masses. There is moderate ill- defined T2 signal elevation and enhancement within the paraspinous soft tissues at L1. T11-T12: Mild retropulsion of the superior T12 level. Bilateral facet hypertrophy. Mild canal stenosis. Minimal anterior cord flattening. Mild foraminal stenosis bilaterally. T12-L1: Disc desiccation. Bilateral facet hypertrophy. Mild canal stenosis. Mild foraminal stenosis bilaterally. L1-L2: Disc desiccation and diffuse disc bulge. Bilateral facet hypertrophy. Mild retropulsion of the inferior L1 level, measuring roughly 3 mm anteroposterior. Mild canal stenosis. Mild foraminal stenosis bilaterally. L2-L3: Disc desiccation and diffuse disc bulge. Bilateral facet and ligament flavum hypertrophy. Mild canal stenosis. Mild foraminal stenosis bilaterally. L3-L4: Disc desiccation and diffuse disc bulge. Bilateral facet and ligamentum flavum hypertrophy. Mild canal stenosis. Mild foraminal stenosis bilaterally. L4-L5: Disc desiccation and diffuse disc bulge. Bilateral facet and ligamentum flavum hypertrophy. Moderate canal stenosis. Moderate left and mild right foraminal stenosis. Left lateral recess stenosis is present, with possible flattening deformity of the left L5 nerve root within the lateral recess. L5-S1: Disc desiccation and diffuse disc bulge with superimposed left far lateral broad-based protrusion. Bilateral facet hypertrophy. Mild canal stenosis. Mild right foraminal stenosis. Severe left foraminal stenosis, with flattening deformity of the left L5 nerve or within the neural foramen. IMPRESSION: 1. Acute moderate L1 compression fracture, associated with mild retropulsion of the inferior L1 level, and mild consequent canal stenosis. Given the postcontrast enhancement characteristics at L1, lumbar spine MRI with and without intravenous contrast in one month is recommended to exclude underlying neoplasm/pathologic fracture. 2. Multilevel degenerative disc and facet disease, causing multilevel canal stenoses, worst at L4-L5, where there is moderate canal stenosis. 3. Left lateral recess stenosis at L4-L5, with possible left L5 nerve root impingement at this level. Additionally, there is severe left L5-S1 foraminal stenosis, associated with flattening deformity of the left L5 nerve root within the neural foramen. Recommend correlation with clinical symptoms to ascertain relevance of this finding. Dictated by: Vinayak Walker M.D. on 10/30/2016 at 10:16 Assessment & Plan 86-year-old female with arthritis, thyroid disease, hypertension, heart failure , A. fib, and meningioma who presents to the emergency due to 2 weeks of severe debilitating back pain without radiculopathy left greater than right and urinary incontinence. #Back pain with incontinence due to acute compression fracture at L1; present on admission; ongoing -Likely due to bulging disc seen on CT or new L1 compression fracture -Pain controlled with 10mg oxycodone Q8-12 -Dilaudid 0.5 mg every 6hr for pain -MRI as above. Recommend repeat MRI in a month to rule out pathologic fracture -Check BMP and UA -Physical therapy #Chronic, presumed diastolic CHF; present on admission; ongoing -Last ECHO was in 2015 and shoed severe LA enlargement but normal Ventricular function -Continue furosemide, metoprolol Stable/Chronic problems #Atrial fibrillation- continue digoxin and metoprolol #Meningioma-stable #Anxiety-no home medications listed #GERD-famotidine 20mg daily #Hypertension-continue hyralazine; labetalol > 180 #CAD-continue ASA, pravastatin Disposition: Patient has been admitted to the general medical floor under observation Pain Evaluation: Adequate Pain Control GI Prophylaxis: H2 wesley Resuscitation Status: CPR: Attempt Resuscitation Attending Statement The patient was seen and examined together with Dr. Munoz on 10/30 and I agree with the history, exam and plan as outlined in the note above. Nolan Munoz DO Oct 30, 2016 03:27 Mynor Christianson MD Oct 30, 2016 04:01 Gianluca Fajardo MD Oct 30, 2016 11:05
[2016-10-30] MEDS ORDERED: Polyethylene Glycol (PEG) 17 Gm Powder PO PRN (03:40)
[2016-10-30] MEDS ORDERED: Ondansetron 2 mg/mL 2 mL Inj IVPUSH PRN (03:40)
[2016-10-30] MEDS ORDERED: Alum-Mag Hydrox-Simeth 30 mL Suspension PO PRN (03:40)
[2016-10-30 04:04] VITALS: BP 174/97; PULSE 85; RESP 18; O2SAT 95
[2016-10-30 04:07] LABS: BASOPHILS % (AUTO) 0.2 % (0-3); EOSINOPHILS % (AUTO) 0.8 % (0-5); MONOCYTES % (AUTO) 4.3 % (4-12); Mean Corpuscular Hemoglobin 29.2 pg (27.0-35.0); Mean Corpuscular Volume 84.5 fL (81-100); NEUTROPHILS % (AUTO) 83.1 % (40-74); Platelet Count 265 bil/L (150-400)
[2016-10-30 04:32] VITALS: BP 158/93; PULSE 80; RESP 20; O2SAT 95
--- NOTE | 2016-10-30 05:08 | NUR ---
Admission Pt arrives with c/o lower back pain. She has difficulty walking due to the pain. She rates her pain currently at a 3. The pt is able to doze intermittently. Her went home to retrieve all her home medications. Pt aware of fall risk and demonstrates use of call light.
[2016-10-30] MEDS ORDERED: CALC-78 PO (08:16)
[2016-10-30] MEDS ORDERED: OMEG1CAP25 PO (08:19)
[2016-10-30] MEDS ORDERED: POTA10CA42 PO (08:20)
[2016-10-30] MEDS ORDERED: CHOL10008 PO (08:21)
--- NOTE | 2016-10-30 10:33 | DRSVH ---
PROCEDURE: MRI LUMBAR SPINE WITH AND WITHOUT CONTRAST ([id number]) INDICATIONS: severe intractable back pain TECHNIQUE: Noncontrast sagittal T1 spin echo and T2 fast spin echo, sagittal STIR, axial T1 and T2 fast spin ech o through the lumbar spine. In cases with scoliosis, additional coronal T2 fast spin echo may be per formed. After the administration of contrast, sagittal and axial T1 spin echo with fat saturation th rough the lumbar spine. COMPARISON: [facility], CT, CT BRAIN W CON, 05/03/2015, 12:22. [facility], C T, CT LUMBAR SPINE WO CON, 10/30/2016, 2:08. FINDINGS: Image quality: Excellent. Alignment and curvature: 5 lumbar type vertebral bodies are present by CT. There is loss of normal l umbar lordosis. There is mild leftward curvature of the spine centered at the thoracolumbar junction. Mild focal kyphosis at T11-L1 is present. There is normal bony alignment. Marrow: Marrow is of normal overall signal. There is moderate wedging of the L1 vertebral body, whic h demonstrates severe ill-defined T2 signal elevation throughout, as well as linear low T2 signal int ensity traversing its inferior aspect. There is moderate chronic wedging of T12. There is mild reacti ve signal within the endplates adjacent to the T12-L1, L3-L4, L4-L5, and L5-S1 intervertebral discs. There is avid post contrast-enhancement throughout the fractured L1 vertebral body, with the exceptio n of a 20 mm diameter focus of enhancement involving the anteroinferior aspect of the L1 vertebral eliz dy. Spinal cord: Conus medullaris terminates at the mid L2 level. Visualized spinal cord demonstrates n ormal signal, without suspicious enhancement. Paraspinous soft tissues: No paravertebral masses. There is moderate ill-defined T2 signal elevation and enhancement within the paraspinous soft tissues at L1. T11-T12: Mild retropulsion of the superior T12 level. Bilateral facet hypertrophy. Mild canal stenosi s. Minimal anterior cord flattening. Mild foraminal stenosis bilaterally. T12-L1: Disc desiccation. Bilateral facet hypertrophy. Mild canal stenosis. Mild foraminal stenosis b ilaterally. L1-L2: Disc desiccation and diffuse disc bulge. Bilateral facet hypertrophy. Mild retropulsion of the inferior L1 level, measuring roughly 3 mm anteroposterior. Mild canal stenosis. Mild foraminal steno sis bilaterally. L2-L3: Disc desiccation and diffuse disc bulge. Bilateral facet and ligament flavum hypertrophy. Mild canal stenosis. Mild foraminal stenosis bilaterally. L3-L4: Disc desiccation and diffuse disc bulge. Bilateral facet and ligamentum flavum hypertrophy. Mi ld canal stenosis. Mild foraminal stenosis bilaterally. L4-L5: Disc desiccation and diffuse disc bulge. Bilateral facet and ligamentum flavum hypertrophy. Mo derate canal stenosis. Moderate left and mild right foraminal stenosis. Left lateral recess stenosis is present, with possible flattening deformity of the left L5 nerve root within the lateral recess. L5-S1: Disc desiccation and diffuse disc bulge with superimposed left far lateral broad-based protrus ion. Bilateral facet hypertrophy. Mild canal stenosis. Mild right foraminal stenosis. Severe left for aminal stenosis, with flattening deformity of the left L5 nerve or within the neural foramen. IMPRESSION: 1. Acute moderate L1 compression fracture, associated with mild retropulsion of the inferior L1 level , and mild consequent canal stenosis. Given the postcontrast enhancement characteristics at L1, lumba r spine MRI with and without intravenous contrast in one month is recommended to exclude underlying n eoplasm/pathologic fracture. 2. Multilevel degenerative disc and facet disease, causing multilevel canal stenoses, worst at L4-L5, where there is moderate canal stenosis. 3. Left lateral recess stenosis at L4-L5, with possible left L5 nerve root impingement at this level. Additionally, there is severe left L5-S1 foraminal stenosis, associated with flattening deformity of the left L5 nerve root within the neural foramen. Recommend correlation with clinical symptoms to as certain relevance of this finding. Dictated by: Vinayak Wakler M.D. on 10/30/2016 at 10:16 Approved by: Vinayak Walker M.D. on 10/30/2016 at 10:31
--- NOTE | 2016-10-30 10:58 | DRSVH ---
PROCEDURE: CT LUMBAR SPINE WITHOUT CONTRAST ([id number]) INDICATIONS: BACK PAIN, INCONTINENCE OF URINE TECHNIQUE: Noncontrast 3 mm thick sections acquired from the T12 level to the sacrum. Sagittal and coronal refo rmats were constructed. For radiation dose reduction, the following was used: automated exposure co ntrol. COMPARISON: [facility], CT, CT ANGIO CHEST ABD PELVIS, 10/14/2016, 12:21. FINDINGS: Image quality: Excellent. Compression deformities are identified at T12, L1 and L4. T12 and L4 are unchanged compared to 7. However, Diffuse osteopenia is present. Multilevel disc space narrowing is present. Disc bulges are present throughout the lumbar spine. Ther e is mild spinal stenosis at L1-2, moderate to severe L2-3, L3-4, L4-5, mild L5-S1. No tubal foramina l narrowing is also present. Visualized portions of the intra-abdominal and pelvic contents as well as lung bases are unremarkable . IMPRESSION: 1. Significant multilevel degenerative changes with multilevel spinal stenosis. Spinal stenosis is predominantly secondary to disc bulges with contributing effect of facet/ligamentu m flavum arthropathy. 2. Multilevel compression deformities with the L1 compression deformity new compared to 10/14/16. No visualized paravertebral hematoma or fluid collection. Dictated by: Alejandra Kearney M.D. on 10/30/2016 at 9:41 Approved by: Alejandra Kearney M.D. on 10/30/2016 at 10:56
[2016-10-30] MEDS: Isosorbide Mononitrate 30 mg ER24 Tablet PO SCH ×2 (11:32→22:05)
[2016-10-30] MEDS: MeTOProlol XL 50 mg ER24 Tablet PO SCH ×2 (11:32→22:06)
[2016-10-30] MEDS: Heparin 5,000 Unit/mL Inj SUBQ SCH ×2 (11:33→18:09)
[2016-10-30 13:21] VITALS: BP 131/96; PULSE 81; RESP 20; O2SAT 94
[2016-10-30] MEDS: Omega-3 Fatty Acids 1,000 mg Capsule PO SCH (13:36)
--- NOTE | 2016-10-30 17:50 | NUR ---
Social Work Note: Brief Note/Attempted Initial Assessment Data& Assessment: EMR reviewed. [employer] attempted to meet with pt at bedside to complete initial assessment, but pt was visiting with two family members/friends at the time and requested [employer] come back tomorrow morning. Jodee Chin is a 86 year old female admitted on 10/30/2016 for back pain and incontinence. Pt comes from [place] and has Medicare and [employer]. Pt sees Pancho Loera MD for primary care. PT has cleared pt to return home with outpt PT and possible DME. [employer] to follow for MD orders. [employer] to follow up with pt to complete initial assessment and to confirm the discharge plan. Plan: Anticipated discharge home via POV when medically ready. [employer] to follow up with pt to complete initial assessment and to confirm the discharge plan. [employer] to continue to follow. KARLO Teran
--- NOTE | 2016-10-30 17:57 | NUR ---
uneventful shift Patient stated that she has mild pain with ambulation only 4/10 that goes away with rest. Refused any pain medication. Pt has not been incontinent this shift and has been using bathroom. Pt walked over 200 ft with physical therapy who recommended using a milan. Pt has been up for all meals but stated that she was not hungry and only ate no more than 25% of meals. Pt is alert and oriented but forgetful and can be confused when awoken from sleep but quickly reorients. Pts morning medications were administered late d/t morning MRI. Afternoon PO hydralazine held per pharmacy as morning dose was given late.
[2016-10-30 19:20] LABS: APPEARANCE,URINE CLEAR (CLEAR,HAZY); COLOR,URINE YELLOW (YELLOW); OCCULT BLOOD,URINE TRACE (NEGATIVE); PH,URINE 5.5 (5.0-8.0); UROBILINOGEN,URINE NORMAL (NORMAL)
[2016-10-30 20:09] VITALS: BP 171/110; PULSE 91; RESP 18; O2SAT 94
[2016-10-30] MEDS: oxyCODONE-Acetamin 5-325 mg Tablet PO PRN (22:06)
[2016-10-31] MEDS: Heparin 5,000 Unit/mL Inj SUBQ SCH ×3 (00:26→16:51)
[2016-10-31 04:36] VITALS: BP 156/88; PULSE 89; RESP 18; O2SAT 96
--- NOTE | 2016-10-31 05:20 | NUR ---
Confusion Pt sleeping most of shift, on rounds this AM noted Pt up in room , with clothes on and gathering belongings. When asked what she was up to, she stated she was " getting ready to go home because the Dr said she could." Explained is was 0400 and the MD needed to see her this morning after breakfast sometime to decide what time she would go home. Pt was Ok with that answer and agreed to put gown back on. When asked about pain, she stated she was having some but it was tolerable, although she needed to lie down. Assisted Pt back to bed and Pt denied offer of pain meds. Helped Pt place order for her breakfast and reminded her to use the call light to get up so she would not fall due to her weakness. Bed alarm placed. Call light in reach. Care continues
[2016-10-31] MEDS ORDERED: KRILL OIL 500 MG PO SCH (08:30)
[2016-10-31] MEDS: oxyCODONE-Acetamin 5-325 mg Tablet PO PRN (08:57)
[2016-10-31] MEDS: Isosorbide Mononitrate 30 mg ER24 Tablet PO SCH ×2 (08:58→20:30)
[2016-10-31] MEDS: MeTOProlol XL 50 mg ER24 Tablet PO SCH ×2 (09:00→20:30)
[2016-10-31] MEDS: Polyethylene Glycol (PEG) 17 Gm Powder PO SCH (09:00)
[2016-10-31] MEDS ORDERED: Polyethylene Glycol (PEG) 17 Gm Powder PO ONE (09:25)
[2016-10-31 09:39] VITALS: BP 156/82; PULSE 79; RESP 18; O2SAT 96
--- NOTE | 2016-10-31 13:27 | NUR ---
Social Work-initial assessment/ readiness for discharge/ multidisciplinary rounds: Data:See initial assessment. Pt is a 86 y/o female who was admitted on 10/30/16 for back pain per H&P. Pt's insurance is [employer] and PCP is Pancho Loera MD. EMR Reviewed. Pt's readmission score is 2. SYBIL met with pt and Joel at bedside, SW role explained. Pt is alert and oriented x3. Pt and reside in [place] in a single level home where she remains independent with ADLs. pt drives and has a fww and cane at home. Pt has been told she needs to use the fww at home. Pt has no HH or SNF history. Pt has no group home care insurance or VA benefits. SW discussed DPOA/advanced directive, pt has completed this, SW encouraged a copy to be brought in. PT recommending home with HH services. MD order received. SYBIL discussed HH, pt and agreeable to HH, HH choice list provided. no agency preference. SYBIL referred to rotating calendar and made referral to [facility] for RN and PT, access given. SYBIL provided pt with discharge planning checklist and encouraged her to call with any questions. Pt and would like SW to update Daughter Tyra [phone], SYBIL called Tyra and provided her with update, she is agreeable to plan. Pt's to provide transport home. F2F to be completed by . SW will continue to follow. Assessment:Pt who would benefit from HH. Plan:Pt to discharge home when medically stable via POV. Pt to use home fww. Referral made to [facility] for RN and PT, access given. F2F to be completed by . SYBIL will continue to follow. KARLO Rose Addendum: 10/31/16 at 1335 by LIAM KEMP Amended: Links added.
--- NOTE | 2016-10-31 13:36 | NUR ---
choice list provided. KARLO Rose
[2016-10-31 13:47] VITALS: BP 159/86; PULSE 78; PULSE 84; RESP 18; O2SAT 94
--- NOTE | 2016-10-31 15:48 | PCM.PNMED ---
Subjective Date of Service Oct 31, 2016 Subjective pt still in severe pain, required percocet 1tab, reported that pt was confused overnight, feels unsafe to go home. 4/10 back pain this AM, required percocet. no appetite, BM Exam Vital Signs Vital Sign - Last Date Time Temp Pulse Resp B/P Pulse Ox O2 Delivery O2 Flow Rate FiO2 10/31/16 04:36 36.9 89 18 156/88 96 Room Air Intake and Output 10/30/16 10/30/16 10/31/16 Cumulative From/Thru 15:00 23:00 07:00 10/30/16 01:26 - 10/31/16 05:33 Intake Total 875 ml 250 ml 1175 ml Output Total 750 ml 750 ml Balance 875 ml -500 ml 425 ml Intake Oral 875 ml 250 ml 1125 ml IV Total 50 ml Output Urine Total 750 ml 750 ml # Voids 2 2 # Bowel Movements 0 0 Exam mildly distressed due to pain no JVD, MMM, no LAD RRR, nl s1, s2 no mrg CTAB, no w,c S,ND,NT,normoactive BS+ warm, no edema, sensory intact to dull, pulses 2/2, motor 5/5 IVs and Medications Medications Reviewed: Medications were reviewed in detail Lab and Diagnostics Result Diagram: 10/30/1635810/30/16358 X-Rays, CTs and MRIs CT Lumbar Spine: (Wet read) Conclusion: Old mild wedge deformity of T11. Mild wedge deformity of T12 which I suspect is either subacute or acute. Mild osteoporotic compression deformity superior endplate of L4. Suspected disc bulge/protrusion L4-5. PROCEDURE: MRI LUMBAR SPINE WITH AND WITHOUT CONTRAST ([id number]) INDICATIONS: severe intractable back pain TECHNIQUE: Noncontrast sagittal T1 spin echo and T2 fast spin echo, sagittal STIR, axial T1 and T2 fast spin echo through the lumbar spine. In cases with scoliosis, additional coronal T2 fast spin echo may be performed. After the administration of contrast, sagittal and axial T1 spin echo with fat saturation through the lumbar spine. COMPARISON: [facility], CT, CT BRAIN W CON, 05/03/2015, 12:22. [facility], CT, CT LUMBAR SPINE WO CON, 10/30/2016, 2:08. FINDINGS: Image quality: Excellent. Alignment and curvature: 5 lumbar type vertebral bodies are present by CT. There is loss of normal lumbar lordosis. There is mild leftward curvature of the spine centered at the thoracolumbar junction. Mild focal kyphosis at T11-L1 is present. There is normal bony alignment. Marrow: Marrow is of normal overall signal. There is moderate wedging of the L1 vertebral body, which demonstrates severe ill-defined T2 signal elevation throughout, as well as linear low T2 signal intensity traversing its inferior aspect. There is moderate chronic wedging of T12. There is mild reactive signal within the endplates adjacent to the T12-L1, L3-L4, L4-L5, and L5-S1 intervertebral discs. There is avid post contrast-enhancement throughout the fractured L1 vertebral body, with the exception of a 20 mm diameter focus of enhancement involving the anteroinferior aspect of the L1 vertebral body. Spinal cord: Conus medullaris terminates at the mid L2 level. Visualized spinal cord demonstrates normal signal, without suspicious enhancement. Paraspinous soft tissues: No paravertebral masses. There is moderate ill- defined T2 signal elevation and enhancement within the paraspinous soft tissues at L1. T11-T12: Mild retropulsion of the superior T12 level. Bilateral facet hypertrophy. Mild canal stenosis. Minimal anterior cord flattening. Mild foraminal stenosis bilaterally. T12-L1: Disc desiccation. Bilateral facet hypertrophy. Mild canal stenosis. Mild foraminal stenosis bilaterally. L1-L2: Disc desiccation and diffuse disc bulge. Bilateral facet hypertrophy. Mild retropulsion of the inferior L1 level, measuring roughly 3 mm anteroposterior. Mild canal stenosis. Mild foraminal stenosis bilaterally. L2-L3: Disc desiccation and diffuse disc bulge. Bilateral facet and ligament flavum hypertrophy. Mild canal stenosis. Mild foraminal stenosis bilaterally. L3-L4: Disc desiccation and diffuse disc bulge. Bilateral facet and ligamentum flavum hypertrophy. Mild canal stenosis. Mild foraminal stenosis bilaterally. L4-L5: Disc desiccation and diffuse disc bulge. Bilateral facet and ligamentum flavum hypertrophy. Moderate canal stenosis. Moderate left and mild right foraminal stenosis. Left lateral recess stenosis is present, with possible flattening deformity of the left L5 nerve root within the lateral recess. L5-S1: Disc desiccation and diffuse disc bulge with superimposed left far lateral broad-based protrusion. Bilateral facet hypertrophy. Mild canal stenosis. Mild right foraminal stenosis. Severe left foraminal stenosis, with flattening deformity of the left L5 nerve or within the neural foramen. IMPRESSION: 1. Acute moderate L1 compression fracture, associated with mild retropulsion of the inferior L1 level, and mild consequent canal stenosis. Given the postcontrast enhancement characteristics at L1, lumbar spine MRI with and without intravenous contrast in one month is recommended to exclude underlying neoplasm/pathologic fracture. 2. Multilevel degenerative disc and facet disease, causing multilevel canal stenoses, worst at L4-L5, where there is moderate canal stenosis. 3. Left lateral recess stenosis at L4-L5, with possible left L5 nerve root impingement at this level. Additionally, there is severe left L5-S1 foraminal stenosis, associated with flattening deformity of the left L5 nerve root within the neural foramen. Recommend correlation with clinical symptoms to ascertain relevance of this finding. Dictated by: Vinayak Walker M.D. on 10/30/2016 at 10:16 Assessment & Plan 86-year-old female with arthritis, thyroid disease, hypertension, heart failure , A. fib, and meningioma who presents to the emergency due to 2 weeks of severe debilitating back pain without radiculopathy left greater than right and urinary incontinence. #Back pain with incontinence due to acute compression fracture at L1; present on admission; ongoing -Likely due to bulging disc seen on CT or new L1 compression fracture -Pain controlled with 10mg oxycodone Q8-12, then titrate down to percocet, will try tramadol 50mg tid instead today -avoid additional iv opioid meds -MRI as above. Recommend repeat MRI in a month to rule out pathologic fracture -Check BMP and UA -Physical therapy #Chronic, presumed diastolic CHF; present on admission; ongoing -Last ECHO was in 2016 and shoed severe LA enlargement but normal Ventricular function -Continue furosemide, metoprolol Stable/Chronic problems #Atrial fibrillation- continue digoxin and metoprolol #Meningioma-stable #Anxiety-no home medications listed #GERD-famotidine 20mg daily #Hypertension-continue hyralazine; labetalol > 180 #CAD-continue ASA, pravastatin Disposition: tomorrow with home PT, HH GI Prophylaxis: H2 wesley Resuscitation Status: CPR: Attempt Resuscitation Time spent 35min Philip Lord MD Oct 31, 2016 09:20
--- NOTE | 2016-10-31 16:27 | NUR ---
Shift Report: Held patient from discharge one more day until tomorrow. Still evaluating pain and mobility. Patient is unsteady on feet without the walker to aid her. Walked two times around the entire unit, one time with her and one time with PT. She was switched to tramadol today for pain coverage. She was also educated and strongly advised by many care team members regarding the need for assistive devices at home including her home walker and cane if she is to prevent injuries.
[2016-10-31 17:33] VITALS: BP 155/76; PULSE 79; RESP 18; O2SAT 97
[2016-10-31 19:49] VITALS: BP 147/93; PULSE 73; RESP 16; O2SAT 96
[2016-11-01] MEDS: Heparin 5,000 Unit/mL Inj SUBQ SCH ×2 (01:17→08:44)
[2016-11-01 04:47] VITALS: BP 157/91; PULSE 69; RESP 14; O2SAT 97
[2016-11-01] MEDS ORDERED: TRAM-14 PO (07:15)
--- NOTE | 2016-11-01 07:26 | NUR ---
Uneventful Night Pt no complains overnight, VSS, afebrile.
[2016-11-01] MEDS: Polyethylene Glycol (PEG) 17 Gm Powder PO SCH (08:30)
[2016-11-01] MEDS: MeTOProlol XL 50 mg ER24 Tablet PO SCH (08:43)
[2016-11-01] MEDS: Isosorbide Mononitrate 30 mg ER24 Tablet PO SCH (08:43)
--- NOTE | 2016-11-01 09:17 | PCM.DIMED ---
Discharge Instructions Date of Service Nov 01, 2016 Dates of Hospitalization Oct 30, 2016 at 03:21 Discharge Diagnosis Discharge Diagnosis acute dx Back pain with incontinence due to acute compression fracture at L1 Chronic problems #Chronic, presumed diastolic CHF #Atrial fibrillation #Meningioma #Anxiety #GERD-famotidine 20mg daily #Hypertension #CAD Diet Discharge Diet: No restrictions Activity Discharge Activity: No restrictions Call your provider Call your provider for: Weakness (unilateral) Patient Instructions Patient Instructions You were hospitalized with back pain from compression fracture at your back. Pain was better controlled with oral medication. You will be arranged for physical therapy and home health. Please note that you can use Tramadol up to three times per day for severe pain. You can also use tylenol for pain additionally. Please followup with your primary doctor in 2weeks Follow-up Provider: Pancho Loera MD Follow-up with PCP in: 1 week Philip Lord MD Nov 01, 2016 09:17
[2016-11-01 10:09] VITALS: BP 147/69; PULSE 69; RESP 16; O2SAT 95
[2016-11-01 11:24] VITALS: PULSE 88
[2016-11-01] MEDS: Omega-3 Fatty Acids 1,000 mg Capsule PO SCH (11:24)
--- NOTE | 2016-11-01 12:00 | NUR ---
DISCHARGE Pt discharged home this morning at 1150, off unit in w/c accompanied by [employer] and pt's . Pt A&Ox4, states back px in manageable and in no apparent distress. Vital signs stable. IV dc'd intact and all belongings returned. All instructions for diet, activity, medications, prescriptions and follow up reviewed with pt, who reports understanding.
--- NOTE | 2016-11-01 17:21 | PCM.DC.MED ---
Discharge Summary Date of Service Nov 01, 2016 Dates of Hospitalization Date of Hospital Admission Oct 30, 2016 at 03:21 Date of Discharge: Nov 01, 2016 Providers: Admitting Physician: Mynor Christianson MD Primary Care Physician: Pancho Loera MD Attending Physician: Philip Huynh MD Diagnosis at Time of Discharge Diagnosis at Time of Discharge acute dx Back pain with incontinence due to acute compression fracture at L1 Chronic problems #Chronic, presumed diastolic CHF #Atrial fibrillation #Meningioma #Anxiety #GERD-famotidine 20mg daily #Hypertension #CAD Procedures XRay, CTs & MRIs PROCEDURE: CT LUMBAR SPINE WITHOUT CONTRAST ([id number]) INDICATIONS: BACK PAIN, INCONTINENCE OF URINE TECHNIQUE: Noncontrast 3 mm thick sections acquired from the T12 level to the sacrum. Sagittal and coronal reformats were constructed. For radiation dose reduction, the following was used: automated exposure control. COMPARISON: [facility], CT, CT ANGIO CHEST ABD PELVIS, 10/14/2016, 12:21. FINDINGS: Image quality: Excellent. Compression deformities are identified at T12, L1 and L4. T12 and L4 are unchanged compared to 10/14/16. However, Diffuse osteopenia is present. Multilevel disc space narrowing is present. Disc bulges are present throughout the lumbar spine. There is mild spinal stenosis at L1-2, moderate to severe L2-3 , L3-4, L4-5, mild L5-S1. No tubal foraminal narrowing is also present. Visualized portions of the intra-abdominal and pelvic contents as well as lung bases are unremarkable. IMPRESSION: 1. Significant multilevel degenerative changes with multilevel spinal stenosis. Spinal stenosis is predominantly secondary to disc bulges with contributing effect of facet/ligamentum flavum arthropathy. 2. Multilevel compression deformities with the L1 compression deformity new compared to 10/14/16. No visualized paravertebral hematoma or fluid collection. Dictated by: Alejandra Kearney M.D. on 10/30/2016 at 9:41 Approved by: Alejandra Kearney M.D. on 10/30/2016 at 10:56 PROCEDURE: MRI LUMBAR SPINE WITH AND WITHOUT CONTRAST ([id number]) INDICATIONS: severe intractable back pain TECHNIQUE: Noncontrast sagittal T1 spin echo and T2 fast spin echo, sagittal STIR, axial T1 and T2 fast spin echo through the lumbar spine. In cases with scoliosis, additional coronal T2 fast spin echo may be performed. After the administration of contrast, sagittal and axial T1 spin echo with fat saturation through the lumbar spine. COMPARISON: [facility], CT, CT BRAIN W CON, 05/03/2015, 12:22. [facility], CT, CT LUMBAR SPINE WO CON, 10/30/2016, 2:08. FINDINGS: Image quality: Excellent. Alignment and curvature: 5 lumbar type vertebral bodies are present by CT. There is loss of normal lumbar lordosis. There is mild leftward curvature of the spine centered at the thoracolumbar junction. Mild focal kyphosis at T11-L1 is present. There is normal bony alignment. Marrow: Marrow is of normal overall signal. There is moderate wedging of the L1 vertebral body, which demonstrates severe ill-defined T2 signal elevation throughout, as well as linear low T2 signal intensity traversing its inferior aspect. There is moderate chronic wedging of T12. There is mild reactive signal within the endplates adjacent to the T12-L1, L3-L4, L4-L5, and L5-S1 intervertebral discs. There is avid post contrast-enhancement throughout the fractured L1 vertebral body, with the exception of a 20 mm diameter focus of enhancement involving the anteroinferior aspect of the L1 vertebral body. Spinal cord: Conus medullaris terminates at the mid L2 level. Visualized spinal cord demonstrates normal signal, without suspicious enhancement. Paraspinous soft tissues: No paravertebral masses. There is moderate ill- defined T2 signal elevation and enhancement within the paraspinous soft tissues at L1. T11-T12: Mild retropulsion of the superior T12 level. Bilateral facet hypertrophy. Mild canal stenosis. Minimal anterior cord flattening. Mild foraminal stenosis bilaterally. T12-L1: Disc desiccation. Bilateral facet hypertrophy. Mild canal stenosis. Mild foraminal stenosis bilaterally. L1-L2: Disc desiccation and diffuse disc bulge. Bilateral facet hypertrophy. Mild retropulsion of the inferior L1 level, measuring roughly 3 mm anteroposterior. Mild canal stenosis. Mild foraminal stenosis bilaterally. L2-L3: Disc desiccation and diffuse disc bulge. Bilateral facet and ligament flavum hypertrophy. Mild canal stenosis. Mild foraminal stenosis bilaterally. L3-L4: Disc desiccation and diffuse disc bulge. Bilateral facet and ligamentum flavum hypertrophy. Mild canal stenosis. Mild foraminal stenosis bilaterally. L4-L5: Disc desiccation and diffuse disc bulge. Bilateral facet and ligamentum flavum hypertrophy. Moderate canal stenosis. Moderate left and mild right foraminal stenosis. Left lateral recess stenosis is present, with possible flattening deformity of the left L5 nerve root within the lateral recess. L5-S1: Disc desiccation and diffuse disc bulge with superimposed left far lateral broad-based protrusion. Bilateral facet hypertrophy. Mild canal stenosis. Mild right foraminal stenosis. Severe left foraminal stenosis, with flattening deformity of the left L5 nerve or within the neural foramen. IMPRESSION: 1. Acute moderate L1 compression fracture, associated with mild retropulsion of the inferior L1 level, and mild consequent canal stenosis. Given the postcontrast enhancement characteristics at L1, lumbar spine MRI with and without intravenous contrast in one month is recommended to exclude underlying neoplasm/pathologic fracture. 2. Multilevel degenerative disc and facet disease, causing multilevel canal stenoses, worst at L4-L5, where there is moderate canal stenosis. 3. Left lateral recess stenosis at L4-L5, with possible left L5 nerve root impingement at this level. Additionally, there is severe left L5-S1 foraminal stenosis, associated with flattening deformity of the left L5 nerve root within the neural foramen. Recommend correlation with clinical symptoms to ascertain relevance of this finding. Dictated by: Vinayak Walker M.D. on 10/30/2016 at 10:16 Brief History HPI obtained by Dr. Christianson on 10/30 86-year-old female with arthritis, thyroid disease, hypertension, heart failure , A. fib, and meningioma who presents to the emergency due to 2 weeks of severe debilitating back pain without radiculopathy and urinary incontinence. Patient states that this pain occurred 1-2 days after spending the day staining her deck and moving tables with her . She has been seen in the emergency department multiple times oxycodone5-325 for pain control. Patient taking 2 tablets 2-3 times a day as almost exhausted her supply. She was unable to hold Dr. Loera, her PCP, and started having more debilitating pain yesterday evening. Patient has attempted to use warm and cold compresses without much effect, as well as a patch for pain control as she says does not work. She denies using any NSAIDs or even Tylenol for pain control. Patient's incontinence started around the same time as the back pain and the patient denies sensation loss in saddle distribution. She denies headache, chest pain, shortness of breath, fever, chills or other review of systems. In the emergency department the patient was given ketorolac, hydromorphone, and Benadryl. CT of the back done showed multiple levels of compression fractures in the lumbar region. Patient is being admitted for pain control and MRI for the morning. No labs were obtained in the ED Hospital Course 86-year-old female with arthritis, thyroid disease, hypertension, heart failure , A. fib, and meningioma who presents to the emergency due to 2 weeks of severe debilitating back pain without radiculopathy left greater than right and urinary incontinence. Patient was admitted with intractable back pain likely due to acute compression fracture at L1, compared to prior study on October 14, this is believed to be new. It was still unclear how patient developed this new compression fracture. MRI also confirmed same findings without any cord compression. Patient denied having any radiculopathy. Pain was initially controlled with oxycodone eventually titrated down to probable 50 mg, plan is to control pain with Tylenol plus tramadol as needed. Home physical therapy and home health and nursing visit will be arranged at the time of discharge. Information [place] #Back pain with incontinence due to acute compression fracture at L1; present on admission; ongoing -Likely due to bulging disc seen on CT or new L1 compression fracture -Pain controlled with 10mg oxycodone Q8-12, then titrate down to percocet, will try tramadol 50mg tid instead today -avoid additional iv opioid meds -MRI as above. Recommend repeat MRI in a month to rule out pathologic fracture -Check BMP and UA -Physical therapy #Chronic, presumed diastolic CHF; present on admission; ongoing -Last ECHO was in 2016 and shoed severe LA enlargement but normal Ventricular function -Continue furosemide, metoprolol Stable/Chronic problems #Atrial fibrillation- continue digoxin and metoprolol #Meningioma-stable #Anxiety-no home medications listed #GERD-famotidine 20mg daily #Hypertension-continue hyralazine; labetalol > 180 #CAD-continue ASA, pravastatin Disposition: tomorrow with home PT, HH Exam Vital Signs (Last) Date Time Temp Pulse Resp B/P Pulse Ox O2 Delivery O2 Flow Rate FiO2 11/01/16 11:24 88 11/01/16 10:09 36.4 16 147/69 95 Room Air Exam Patient was examined on the day of discharge Test 10/30/16 03:59 10/30/16 19:05 White Blood Count 6.5th/mm3 (3.8-10.1) Red Blood Count 5.03mil/mm3 (3.90-5.20) Hemoglobin 14.7g/dL (12.0-15.6) Hematocrit 42.5% (35.0-46.0) Mean Corpuscular Volume 84.5fL (81-100) Mean Corpuscular Hemoglobin 29.2pg (27.0-35.0) Mean Corpuscular Hemoglobin Concent 34.6% (32.0-37.0) Red Cell Distribution Width 14.4% (12.3-15.4) Platelet Count 265bil/L (150-400) Neutrophils (%) (Auto) 83.1% (40-74) Lymphocytes (%) (Auto) 11.1% (14-46) Monocytes (%) (Auto) 4.3% (4-12) Eosinophils (%) (Auto) 0.8% (0-5) Basophils (%) (Auto) 0.2% (0-3) Sodium Level 137mEq/L (134-144) Potassium Level 3.6mEq/L (3.5-5.2) Chloride Level 95mEq/L (97-108) Carbon Dioxide Level 25mmol/L (18-29) Blood Urea Nitrogen 14mg/dL (8-27) Creatinine 0.66mg/dL (0.57-1.00) Estimat Glomerular Filtration Rate 121mL/min (>59) Glucose Level 119mg/dL (60-99) Calcium Level 9.0mg/dL (8.5-10.1) Total Bilirubin 0.6mg/dL (0.0-1.2) Aspartate Amino Transf (AST/SGOT) 26U/L (0-50) Alanine Aminotransferase (ALT/SGPT) 23U/L (0-32) Alkaline Phosphatase 103U/L (25-165) Total Protein 6.6g/dL (6.4-8.4) Albumin 3.6g/dL (3.4-5.0) Urine Color Yellow (YELLOW) Urine Appearance Clear (CLEAR,HAZY) Urine pH 5.5 (5.0-8.0) Urine Specific [place] 1.015 (1.003-1.035) Urine Protein Negativemg/dL (NEG,TRACE) Urine Glucose (UA) Negativemg/dL (NEGATIVE) Urine Ketones Negativemg/dL (NEGATIVE) Urine Occult Blood Trace (NEGATIVE) Urine Nitrite Negative (NEGATIVE) Urine Bilirubin Negative (NEGATIVE) Urine Urobilinogen Normalmg/dL (NORMAL) Urine Leukocyte Esterase Negative (NEGATIVE) Urine RBC 0-2/hpf (0-2) Urine WBC 0-5/hpf (0-5) Urine Epithelial Cells None/hpf (NONE-MOD) Urine Crystals None seen (NONE SEEN) Urine Bacteria None/hpf (NONE-FEW) Urine Hyaline Casts None/lpf (NONE) Urine Granular Casts None seen (NONE SEEN) Urine Waxy Casts None seen (NONE SEEN) Urine Red Blood Cell Casts None seen (NONE SEEN) Urine White Blood Cell Casts None seen (NONE SEEN) Urine Mucus None seen (None Seen) Urine Trichomonas None seen (NONE SEEN) Urine Yeast None (NONE SEEN) Urinalysis Comment None Urine Culture Reflexed Not indicated Discharge Medications Discharge Medications ([Magnesium ]) 400 MG PO DAILY (Reported) ([Krill Oil ]) 500 MG PO DAILY (Reported) Aspirin Chew (Aspirin Chew) 81 Mg Chew 81 MG PO DAILY (Reported) Calcium Carbonate/Vitamin D3 (Calcium 500 + Vit D Caplet) 1 Each Tablet 1 EACH PO DAILY (Reported) Cholecalciferol (Vitamin D3) (Vitamin D3) 1,000 Unit Tab.chew 1,000 UNIT PO DAILY (Reported) Digoxin (Lanoxin) 0.125 Mg Tablet 0.125 MG PO DAILY@12 Prescribed by: TANIYA DENTON DO Furosemide (Furosemide) 20 Mg Tab 20 MG PO DAILY (Reported) Hydralazine (Hydralazine) 10 Mg Tablet 10 MG PO QID (Reported) Isosorbide MN ER (Isosorbide MN ER) 30 Mg Tab.er.24h 30 MG PO BID (Reported) Metoprolol Succinate ER (Metoprolol Succinate ER) 50 Mg Tab.er.24h 50 MG PO BID Prescribed by: TANIYA DENTON DO [place]-3 Fatty Acids/Fish Oil ([place] 3 Fish Oil Softgel) 1 Each Capsule.dr 1 EACH PO every other day (Reported) Polyethylene Glycol 3350 (Miralax) 17 Gm Powd.pack 17 GM PO DAILY use daily while taking percocet to prevent constipation Prescribed by: BROOKLYNN VERGARA DO Potassium Chloride (Potassium Chloride) 10 Meq Capsule.er 10 MEQ PO BID ( Reported) TAKE WITH FOOD Pravastatin (Pravachol) 20 Mg Tablet 10 MG PO HS Prescribed by: TANIYA DENTON DO Vitamin E Mixed (Vitamin E) 400 Unit Capsule 400 UNIT PO DAILY (Reported) As needed Tramadol (Ultram) 50 Mg Tablet 50 MG PO TID PRN PRN For Pain Prescribed by: PHILIP HUYNH MD oxyCODONE-Acetaminophen 5-325 mg (oxyCODONE-Acetaminophen 5-325 mg) 1 Each Tablet 1-2 TAB PO Q6H PRN PRN For Pain Prescribed by: BROOKLYNN VERGARA DO Followup Plan Disposition: home with HH Discharge Diet: No restrictions Discharge Activity: No restrictions Patient Instructions You were hospitalized with back pain from compression fracture at your back. Pain was better controlled with oral medication. You will be arranged for physical therapy and home health. Please note that you can use Tramadol up to three times per day for severe pain. You can also use tylenol for pain additionally. Please followup with your primary doctor in 2weeks Follow-up Provider: Pancho Loera MD Follow-up with PCP in: 1 week Time spent 65min Philip Huynh MD Nov 01, 2016 17:21
--- NOTE | 2016-11-04 16:13 | NUR ---
Social Work- late entry: SYBIL received a call from daughter Betty [phone] stating that pt has not yet had anyone from come out and see pt. SYBIL called Mei with [employer] who states they should have someone out by tomorrow to see pt. Mei states she will call daughter and provide update. KARLO Rose
== END 2016-11-01 11:58 | disposition home health service (06) ==
LOC: SED 01:15 → MPC 03:21
PROVIDERS: ADMIT Hospitalist; ATTEND Hospitalist
DX: S32.018A Other fracture of first lumbar vertebra, initial encounter for closed fracture (principal); M54.5 Low back pain; I50.30 Unspecified diastolic (congestive) heart failure; R32 Unspecified urinary incontinence; I10 Essential (primary) hypertension; I25.10 Atherosclerotic heart disease of native coronary artery without angina pectoris; M19.90 Unspecified osteoarthritis, unspecified site; D50.9 Iron deficiency anemia, unspecified; K21.9 Gastro-esophageal reflux disease without esophagitis; E83.42 Hypomagnesemia; E07.9 Disorder of thyroid, unspecified; D32.0 Benign neoplasm of cerebral meninges; F41.9 Anxiety disorder, unspecified; Z88.8 Allergy status to other drugs, medicaments and biological substances; Z79.82 Long term (current) use of aspirin; Z85.828 Personal history of other malignant neoplasm of skin
CPT/HCPCS: 36415; 72131; 72158; 80053; 81000; 85025; 96372; 97162; 97530; 99285; A9585; G0378; J1644; J1885